=== PATIENT | female | born 1950 | race Caucasian/White ===

== ENCOUNTER 2016-05-20 17:26 | Inpatient (IN) | payer OTHER ==
[~2016-05-20] VITALS: Ht 154.9 cm; Wt 61.7 kg
[2016-05-20] MEDS ORDERED: ONDANSETRON 4 MG INJ IV STA (17:56)
[2016-05-20] MEDS ORDERED: morphine 4 MG/ML VIAL IV STA (17:56)
[2016-05-20] MEDS ORDERED: PIPER-TAZO 3.375 GM IV (PMX) 100 ML IVPB STA (17:56)
[2016-05-20] MEDS ORDERED: VANCOMYCIN 1 GM (PMX) 250 ML IVPB STA (17:56)
[2016-05-20] MEDS ORDERED: SODIUM CHLORIDE 0.9% 1L BAG IV* STA (17:56)
[2016-05-20] MEDS ORDERED: SIME80TA PO (18:09)
[2016-05-20] MEDS ORDERED: PRED5 PO (18:09)
[2016-05-20] MEDS ORDERED: NORT10CA2 PO (18:10)
[2016-05-20] MEDS ORDERED: METF1000 PO (18:11)
[2016-05-20] MEDS ORDERED: LOSA25TA5 PO (18:11)
[2016-05-20] MEDS ORDERED: LEVO88TA3 PO (18:12)
[2016-05-20] MEDS ORDERED: HC20CR25 TOP (18:14)
[2016-05-20] MEDS ORDERED: INSU100I12 SQ (18:15)
[2016-05-20] MEDS ORDERED: FLUT16SP17 NASAL (18:15)
[2016-05-20] MEDS ORDERED: FER325 PO (18:16)
[2016-05-20] MEDS ORDERED: CADE40GE TP (18:17)
[2016-05-20] MEDS ORDERED: IMU50 PO (18:22)
[2016-05-20] MEDS ORDERED: ATOR40TA68 PO (18:23)
[2016-05-20] MEDS ORDERED: ASPI-664 PO (18:26)
[2016-05-20] MEDS ORDERED: AMLO2.5T78 PO (18:28)
[2016-05-20] MEDS ORDERED: BACI28.34 TOP (18:29)
[2016-05-20 18:32] LABS: ADD SCAN DIFF NO
[2016-05-20 18:34] LABS: BASOPHILS % 0.3 % (0.0-2.0); EOSINOPHILS # 0.1 10^3/ul (0.0-0.5); EOSINOPHILS % 0.8 % (0.0-7.0); HEMATOCRIT 39.4 % (37.0-47.0); HEMOGLOBIN 11.8 g/dl (12.0-16.0); LYMPHOCYTES # 2.5 10^3/ul (0.8-2.9); LYMPHOCYTES % 21.4 % (15.0-51.0); MEAN CORPUSCULAR HEMOGLOBIN 22.6 pg (29.0-33.0); MEAN CORPUSCULAR HGB CONC 29.9 g/dl (32.0-37.0); MEAN CORPUSCULAR VOLUME 75.3 fl (82.0-101.0); MEAN PLATELET VOLUME 10.5 fl (7.4-10.4); MONOCYTES % 8.4 % (0.0-11.0); NEUTROPHILS % 68.7 % (39.0-77.0); PLATELET COUNT 261 10^3/UL (140-415); RED BLOOD COUNT 5.23 10^6/ul (4.20-5.40); RED CELL DISTRIBUTION WIDTH 17.5 % (11.5-14.5); WHITE BLOOD COUNT 11.6 10^3/ul (4.8-10.8)
--- NOTE | 2016-05-20 18:37 | ERA ---
ER Documentation Chief Complaint Date/Time DATE: 05/20/16 TIME: 18:32 Chief Complaint DIABETIC FOOT/LEG PAIN X 3 DAYS HPI 66-year-old female with a history of hypertension, diabetes, recurrent leg wounds, and hypergammaglobulinemia on Azathioprine and prednisone daily presenting with severe left lower leg pain. She has noticed some redness and swelling in the past 3 days. Since yesterday she has had associated fevers and chills. She is unable to walk secondary to the pain. Her pain is rated at a 10 out of 10, throbbing, radiating down to her foot. She denies any new numbness or tingling. She recently had an MRI of her leg about 2 weeks ago but she does not know the results. However she did not have symptoms at that time. She endorses nausea, but no vomiting, diarrhea, constipation, chest pain, shortness of breath, or abdominal pain. ROS All systems reviewed and are negative except as per history of present illness. Medications Home Meds Reported Medications Bacitracin* (Bacitracin Zinc Oint*) 28.35 Gm Oint, 2 APPLIC TOP BID, TUB APPLI TO 05/20/16 Amlodipine Besylate* (Amlodipine Besylate*) 2.5 Mg Tablet, 2.5 MG PO BID, #30 TAB 05/20/16 Aspirin* (Aspirin* EC) 81 Mg Tablet.dr, 81 MG PO DAILY, TAB 05/20/16 Atorvastatin* (Atorvastatin*) 40 Mg Tablet, 40 MG PO DAILY, #30 TAB 05/20/16 Azathioprine* (Imuran*) 50 Mg Tab, 50 MG PO DAILY, TAB 05/20/16 Cadexomer Iodine (Iodosorb) 40 Gm Gel..gm., 1 MG TP BID Y for PRN 05/20/16 Ferrous Sulfate* (Ferrous Sulfate*) 325 Mg Tabec, 325 MG PO BID, TAB 05/20/16 Fluticasone Propionate* (Fluticasone Propionate* Nasal) 50 Mcg/[place] - 16 Gm [place].susp, 1 SPRAY NASAL BID, #1 BOTTLE TO EACH NOSTRIL 05/20/16 Insulin Lispro (Humalog Kwikpen U-100) 100 Unit/1 Ml Insuln.pen, 14 UNIT SQ TID 05/20/16 Hydrocortisone* Topical (Hydrocortisone* Topical) 2.5%-20 Gm Cream..g., 1 APPLIC TOP BID, TUB 05/20/16 Levothyroxine Sodium* (Levothyroxine Sodium*) 88 Mcg Tablet, 88 MCG PO BEFORE BREAKFAST, #30 TAB 05/20/16 Losartan Potassium* (Losartan Potassium*) 25 Mg Tablet, 25 MG PO DAILY, TAB 05/20/16 Metformin Hcl* (Metformin Hcl*) 1,000 Mg Tablet, 1000 MG PO WITH BREAKFAST DINNE , #60 TAB 05/20/16 Nortriptyline Hcl* (Nortriptyline Hcl*) 10 Mg Capsule, 10 MG PO HS, CAP 05/20/16 Prednisone* (Prednisone*) 5 Mg Tab, 5 MG PO DAILY, TAB 05/20/16 Simethicone* (Anti-Gas/80*) 80 Mg Tab.chew, 80 MG PO Q6H Y for DISTENSION/GAS/ BLOATING, TAB.CHEW 05/20/16 Allergies Allergies: Coded Allergies: No Known Allergy (Unverified , 05/20/16) PMhx/Soc History of Surgery: No Anesthesia Reaction: No Hx Neurological Disorder: No Hx Respiratory Disorders: No Hx Cardiac Disorders: No Hx Psychiatric Problems: No Hx Miscellaneous Medical Probl: Yes (Hypertension, hypergammaglobulinemia with chronic steroid use, diabetes) Hx Alcohol Use: No Hx Substance Use: No Hx Tobacco Use: No Smoking Status: Never smoker FmHx Family History: No diabetes Physical Exam Vitals Vital Signs Date Time Temp Pulse Resp B/P Pulse Ox O2 Delivery O2 Flow Rate FiO2 05/20/16 18:45 98.7 110 26 145/72 99 Room Air 05/20/16 18:22 Nasal Cannula 05/20/16 17:30 100.2 104 18 171/77 99 Physical Exam Const: Nontoxic, appears to be in significant distress secondary to pain Head: Atraumatic Eyes: Normal Conjunctiva ENT: Normal External Ears, Nose and Mouth. Neck: Full range of motion. No meningismus. Resp: Clear to auscultation bilaterally Cardio: Regular rate and rhythm, no murmurs Abd: Soft, non tender, non distended. Normal bowel sounds Skin: No petechiae or rashes Back: No midline or flank tenderness Ext: No cyanosis. Bilateral lower extremities with papular lesions and some nodules that are skin colored. Left lower extremity with nodule over the left valente with surrounding erythema. No fluctuance. There is induration. Entire lower leg is tender to palpation but compartments are soft. 1+ distal pulses bilaterally. Sensations normal. Neur: Awake and alert and oriented 3, no facial asymmetry, motor intact in all 4 extremities Psych: Normal Mood and Affect Result Diagram: 05/20/160 05/20/160 Results 24 hrs Laboratory Tests Test 05/20/16 18:20 White Blood Count 11.610^3/ul Red Blood Count 5.2310^6/ul Hemoglobin 11.8g/dl Hematocrit 39.4% Mean Corpuscular Volume 75.3fl Mean Corpuscular Hemoglobin 22.6pg Mean Corpuscular Hemoglobin Concent 29.9g/dl Red Cell Distribution Width 17.5% Platelet Count 92608^3/UL Mean Platelet Volume 10.5fl Neutrophils % 68.7% Lymphocytes % 21.4% Monocytes % 8.4% Eosinophils % 0.8% Basophils % 0.3% Nucleated Red Blood Cells % 0.0/100WBC Neutrophils # 8.010^3/ul Lymphocytes # 2.510^3/ul Monocytes # 1.010^3/ul Eosinophils # 0.110^3/ul Basophils # 0.010^3/ul Nucleated Red Blood Cells # 0.010^3/ul Prothrombin Time 14.3Sec Prothrombin Time Ratio 1.1 INR International Normalized Ratio 1.11 Activated Partial Thromboplast Time 32.6Sec Sodium Level 133mmol/L Potassium Level 4.7mmol/L Chloride Level 98mmol/L Carbon Dioxide Level 24mmol/L Anion Gap 16 Blood Urea Nitrogen 13mg/dl Creatinine 0.66mg/dl Glucose Level 406mg/dl Lactic Acid Level 3.3mmol/L Calcium Level 9.0mg/dl Total Bilirubin 0.3mg/dl Direct Bilirubin 0.00mg/dl Indirect Bilirubin 0.3mg/dl Aspartate Amino Transf (AST/SGOT) 21IU/L Alanine Aminotransferase (ALT/SGPT) 28IU/L Alkaline Phosphatase 122IU/L Troponin I < 0.012ng/ml Total Protein 8.6g/dl Albumin 3.8g/dl Globulin 4.80g/dl Albumin/Globulin Ratio 0.79 Current Medications Medications (Trade) Dose Ordered Sig/Jad Route PRN Reason Start Time Stop Time Status Last Admin Dose Admin Sodium Chloride 2170 ml 2,170 ml BOLUS OVER 2 HOURS STAT IV* 05/20/16 17:56 05/20/16 18:00 DC 05/20/16 18:18 Vancomycin HCl 250 ml @ 125 mls/hr ONCE STAT IVPB 05/20/16 17:56 05/20/16 19:55 DC 05/20/16 18:41 Piperacillin Sod/ Tazobactam Sod (Zosyn 3.375gm/ 100 ml (Pmx)) 100 ml @ 100 mls/hr ONCE STAT IVPB 05/20/16 17:56 05/20/16 18:55 DC 05/20/16 18:41 Morphine Sulfate (morphine) 4 mg ONCE STAT IV 05/20/16 17:56 05/20/16 18:00 DC 05/20/16 18:18 Ondansetron HCl (Zofran Inj) 4 mg ONCE STAT IV 05/20/16 17:56 05/20/16 18:00 DC 05/20/16 18:18 Hydromorphone HCl (Dilaudid) 1 mg ONCE STAT IV 05/20/16 18:55 05/20/16 18:56 DC 05/20/16 19:38 Procedures/MDM EKG: Rate/Rhythm: Normal Sinus Rhythm QRS, ST, T-waves: Right atrial enlargement, no changes consistent w/ acute ischemia Impression: No evidence of ischemia or arrhythmia Chest x-ray: Cardiomegaly and very mild pulmonary vascular ingestion. X-ray of left tib-fib: 1. No evidence of acute fracture or dislocation. 2. Indeterminate areas of calcification and periosteal reaction are seen involving the anterior tibial surface, of uncertain etiology, possibly sequelae of chronic inflammatory process. Patient is presenting with a cellulitis of the left lower extremity with uncontrolled pain. I have a low suspicion for compartment syndrome. There is no evidence of necrotizing fasciitis. Vancomycin and Zosyn were started. Sepsis workup was started. Patient's infectious symptoms have not stabilized and the patient is at risk of rapid decompensation. The patient will be admitted for careful hydration, antibiotic therapy, and infectious source control. Severe Sepsis Assessment: Infectious Source: Cellulitis End organ damage indicated by: [Lactate > 2.0 mmol/L Severe Sepsis Managment: Blood Cultures X 2 before broad spectrum antibiotics initiated within 3 hours of recognition. 30 ml/kg NS bolus Completed Initial Lactate: 3.3 Repeat Lactate 2.9 Critical Care: Time: 35 minutes Treatments/Evaluations: Emergent fluid management, while maintaining close respiratory support. Immediate broad spectrum antibiotic therapy. Simultaneous assessment for possible sources in order to direct therapy. Consideration for invasive and chemical support to prevent respiratory or cardiac collapse. Septic Shock Assessment (1 hour post 30 ml/kg fluid bolus): Hypotension (SBP < 90 or 40 mmHg drop, MAP < 65): No Lactic acid > 4.0 no Accepting Care Team: Current data and ongoing care discussed. Time: Time of admission Primary Provider: Vance Consulting: none Outstanding Data: none Departure Diagnosis: Primary Impression: Cellulitis of left lower extremity Additional Impressions: Severe sepsis Uncontrolled diabetes mellitus Qualified Code: E11.8 - Uncontrolled type 2 diabetes mellitus with complication, with long-term current use of insulin ZAHRA CATALAN MD May 20, 2016 18:37
[2016-05-20 18:46] LABS: ALBUMIN 3.8 g/dl (3.3-4.9); CHLORIDE 98 mmol/L (97-110); INR 1.11; PROTIME 14.3 Sec (12.2-14.2); PT RATIO 1.1
[2016-05-20 18:47] LABS: PARTIAL THROMBOPLASTIN TIME 32.6 Sec (25.0-35.0); POTASSIUM 4.7 mmol/L (3.5-5.1); SODIUM 133 mmol/L (135-144)
[2016-05-20 18:49] LABS: ALANINE AMINOTRANSFERASE 28 IU/L (13-69); ALBUMIN/GLOBULIN RATIO 0.79; ALKALINE PHOSPHATASE 122 IU/L (42-121); ANION GAP 16 (8-16); ASPARTATE AMINO TRANSFERASE 21 IU/L (15-46); BILIRUBIN,INDIRECT 0.3 mg/dl (0-1.1); BILIRUBIN,TOTAL 0.3 mg/dl (0.2-1.3); BLOOD UREA NITROGEN 13 mg/dl (7-20); CARBON DIOXIDE 24 mmol/L (21-31); CREATININE 0.66 mg/dl (0.44-1.00); TOTAL PROTEIN 8.6 g/dl (6.1-8.1)
[2016-05-20 18:52] LABS: GLUCOSE 406 mg/dl (70-220)
[2016-05-20] MEDS ORDERED: HYDROmorphONE 1 MG/ML SYG IV STA (18:55)
[2016-05-20 19:06] LABS: TROPONIN-I < 0.012 ng/ml (0.00-0.12)
--- NOTE | 2016-05-20 19:15 | RADRPT ---
PROCEDURE: XR Chest. CLINICAL INDICATION: Possible sepsis. TECHNIQUE: Single frontal view of the chest was obtained COMPARISON: None FINDINGS: Cardiomegaly. Atherosclerotic calcifications in the thoracic aorta. Very mild pulmonary vascular in gestion and lungs otherwise clear. There is no pleural effusion or pneumothorax. IMPRESSION: Cardiomegaly and very mild pulmonary vascular ingestion. RPTAT: [facility]U Physician Efe Date Time Electronically viewed and signed by Barry Wu Physician on 05/20/2016 19:14 RS/
--- NOTE | 2016-05-20 19:21 | RADRPT ---
PROCEDURE: XR Tibia and Fibula. CLINICAL INDICATION: Sepsis, cellulitis TECHNIQUE: Two views of the left tibia and fibula are available for review. COMPARISON: None available FINDINGS: Indeterminate areas of calcification and periosteal reaction are seen predominately involving the an terior tibial surface, of uncertain etiology, possibly sequelae of chronic inflammatory process. No acute fracture or dislocation is identified. No focal osseous lesion is seen. There is no radiode nse foreign body. No subcutaneous gas is identified. IMPRESSION: 1. No evidence of acute fracture or dislocation. 2. Indeterminate areas of calcification and periosteal reaction are seen involving the anterior tib ial surface, of uncertain etiology, possibly sequelae of chronic inflammatory process. RPTAT: QQ .Vasile Benton MD, MD Date Time Electronically viewed and signed by .Vasile Benton MD, on 05/20/2016 19:21 .R/
[2016-05-20] MEDS ORDERED: ACETAMINOPHEN 325 MG TAB PO PRN (20:00)
[2016-05-20] MEDS ORDERED: ONDANSETRON 4 MG INJ IV PRN ×2 (20:00→22:00)
[2016-05-20 20:43] VITALS: TEMP 102.1
[2016-05-20 21:18] VITALS: Ht 154.9 cm; Wt 61.7 kg
[2016-05-20 21:31] VITALS: BP 139/61; RESP 21
[2016-05-20] MEDS ORDERED: VANCOMYCIN IV PER PHARMACY XX SCH (22:00)
[2016-05-20] MEDS ORDERED: GLUCOSE GEL 15 GRAM TUBE PO PRN ×2 (22:30)
[2016-05-20] MEDS ORDERED: GLUCAGON 1 MG INJ IM PRN (22:30)
[2016-05-20] MEDS ORDERED: GLUCOSE GEL 15 GRAM TUBE BUCCAL PRN (22:30)
[2016-05-20] MEDS ORDERED: DEXTROSE 50% 50 ML SYRINGE IV PRN ×2 (22:30)
[2016-05-20] MEDS: INSULIN GLARGINE [LANtus] 3 ML PEN SC SCH (22:38)
[2016-05-21] MEDS: morphine 2 MG INJ IV PRN ×5 (00:55→21:13)
[2016-05-21] MEDS ORDERED: ACCU-CHEK XX SCH (02:00)
[2016-05-21] MEDS: ACCU-CHEK XX SCH (02:45)
--- NOTE | 2016-05-21 07:38 | HP ---
DATE OF ADMISSION: 05/20/2016 CHIEF COMPLAINT: Left lower leg redness and pain. HISTORY OF PRESENT ILLNESS: The patient is a 66-year-old female with a history of diabetes, hyperte nsion, dyslipidemia, hypergammaglobulinemia who presented to the emergency department with left lowe r extremity pain and redness. She stated she has had recurrent left leg wound which, over the past 3 days, has gotten worse. She reported some fever and also difficulty to walk because of the leg pa in. She denied any chest pain, shortness of breath, nausea, vomiting, abdominal pain, or urinary sy mptoms. This is her first visit to this hospital. She did say she had imaging of her leg, either a CAT scan or an MRI, about 2 weeks ago, but she does not know the results of it. REVIEW OF SYSTEMS: A 12-point review of the brain was performed, negative except as in the HPI. PAST MEDICAL HISTORY: As per HPI. SOCIAL HISTORY: Denies history of tobacco, alcohol, or illicit drug use. ALLERGIES: NO KNOWN DRUG ALLERGIES. HOME MEDICATIONS: Include 1. Ferrous sulfate. 2. Lipitor. 3. Losartan. 4. Aspirin. 5. Nortriptyline 6. Fluticasone. 7. ____. 8. Insulin. 9. Metformin. 10. Synthroid. 11. Prednisone. 12. Hydrocortisone cream. 13. Imuran. PHYSICAL EXAMINATION: VITAL SIGNS: Blood pressure 139/61, heart rate 69, respiratory rate 21, temperature 102.5, oxygen s aturation 95%. GENERAL: The patient seems somehow uncomfortable because of leg pain. HEENT: No obvious head deformity. Pupils are reactive to light. Extraocular muscles intact. CARDIOVASCULAR: Tachycardic, regular rhythm. LUNGS: Clear. ABDOMEN: Soft, nontender. Positive bowel sounds. EXTREMITIES: There is erythema and a nodule over her left lower extremity. She does have some lesi ons which are maculopapular on her bilateral lower extremities. There is tenderness on her left low er extremity. LABORATORY DATA: Pertinent positives as mentioned in the HPI. IMAGING: Left lower extremity x-ray shows indeterminate areas of calcification and periosteal react ion involving the anterior tibial surface, possibly sequelae of chronic inflammatory process. Other daniels, no evidence of acute fracture or dislocation. Chest x-ray shows cardiomegaly and very mild pu lmonary vascular congestion. IMPRESSION: 1. Sepsis as evidenced by fever, tachycardia, secondary to left lower extremity cellulitis. 2. Recurrent left lower extremity cellulitis/wound. 3. Diabetes with hyperglycemia. 4. Hypertension. 5. 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 Hypothyroidism. 7. Dyslipidemia. PLAN: She will be placed on broad spectrum antibiotics. We will follow up on the culture results i ncluding blood, urine, and if possible wound. We will provide pain medication as needed. She will be placed on insulin with adjustment as needed for better glycemic control. We will continue her ho me medications with adjustment as needed. We will check A1c, fasting lipid, and TSH in the morning. We will place an ID consult. Further workup and management per clinical course. Dictated By: JERICA ACUNA/TORREY Conf#: [id number] DID#: [id number]
[2016-05-21 07:40] VITALS: BP 137/61; RESP 18
[2016-05-21 07:47] LABS: ADD SCAN DIFF NO
[2016-05-21 07:53] LABS: BASOPHILS % 0.3 % (0.0-2.0); EOSINOPHILS # 0.1 10^3/ul (0.0-0.5); EOSINOPHILS % 0.9 % (0.0-7.0); HEMATOCRIT 34.4 % (37.0-47.0); HEMOGLOBIN 10.6 g/dl (12.0-16.0); LYMPHOCYTES # 2.3 10^3/ul (0.8-2.9); MEAN CORPUSCULAR HGB CONC 30.8 g/dl (32.0-37.0); MEAN CORPUSCULAR VOLUME 74.6 fl (82.0-101.0); MEAN PLATELET VOLUME 10.7 fl (7.4-10.4); MONOCYTE # 1.1 10^3/ul (0.3-0.9); MONOCYTES % 9.1 % (0.0-11.0); NEUTROPHIL # 8.1 10^3/ul (1.6-7.5); NEUTROPHILS % 69.2 % (39.0-77.0); PLATELET COUNT 226 10^3/UL (140-415); RED BLOOD COUNT 4.61 10^6/ul (4.20-5.40); RED CELL DISTRIBUTION WIDTH 17.7 % (11.5-14.5); WHITE BLOOD COUNT 11.7 10^3/ul (4.8-10.8)
[2016-05-21 08:23] LABS: ALBUMIN 3.2 g/dl (3.3-4.9); POTASSIUM 3.9 mmol/L (3.5-5.1)
[2016-05-21 08:25] LABS: CREATININE 0.65 mg/dl (0.44-1.00)
[2016-05-21 08:26] LABS: ALBUMIN/GLOBULIN RATIO 0.72; BILIRUBIN,INDIRECT 0.3 mg/dl (0-1.1); BILIRUBIN,TOTAL 0.3 mg/dl (0.2-1.3); CALCIUM 8.1 mg/dl (8.4-10.2); TOTAL PROTEIN 7.6 g/dl (6.1-8.1)
[2016-05-21 08:27] LABS: CHOL/HDL RATIO 4.4 RATIO
[2016-05-21] MEDS: INSULIN ASPART [NOVOLOG] 3 ML PEN SC SCH ×7 (08:31→21:00)
[2016-05-21] MEDS: HYDROCORTISONE 2.5% 20 GM CR TOP SCH ×2 (08:32→21:23)
[2016-05-21] MEDS: LEVOTHYROXINE 88 MCG TAB PO SCH (08:32)
[2016-05-21] MEDS: ASPIRIN (EC) 81 MG TAB PO SCH (08:32)
[2016-05-21] MEDS: AZATHIOPRINE 50 MG TAB PO SCH (08:32)
[2016-05-21] MEDS: ATORVASTATIN 40 MG TAB PO SCH (08:33)
[2016-05-21] MEDS: FLUTICASONE 0.05% 16 GM NAS SPRAY NASAL SCH ×2 (08:33→21:18)
[2016-05-21] MEDS: FERROUS SULFATE (EC) 325 MG TAB PO SCH ×2 (08:33→21:19)
[2016-05-21] MEDS: CEFEPIME 1GM/50 ML (PMX) 50 ML IVPB SCH ×2 (08:39→21:14)
[2016-05-21] MEDS: BACITRACIN 0.5%/ZINC 28.35 GM OINT TOP SCH ×2 (09:00→21:18)
[2016-05-21] MEDS ORDERED: LOSARTAN 25 MG TAB PO SCH (09:00)
[2016-05-21] MEDS ORDERED: AMLODIPINE 2.5 MG TAB PO SCH (09:00)
[2016-05-21] MEDS ORDERED: VANCOMYCIN 1.5 GM in SOD CHLORIDE 0.9% 250 ML IVPB SCH (11:00)
[2016-05-21 11:42] LABS: IRON 17 ug/dl (35-150)
[2016-05-21] MEDS: VANCOMYCIN 750 MG in SOD CHLORIDE 0.9% 150 ML IVPB SCH ×2 (11:43→22:30)
--- NOTE | 2016-05-21 11:46 | PN ---
Date/Time of Note Date/Time of Note DATE: 05/21/16 TIME: 11:40 Assessment/Plan VTE Prophylaxis VTE Prophylaxis Intervention: other Lines/Catheters IV [facility]from [facility] Saline Lock Assessment/Plan Problems: (1) Hypothyroidism (acquired) Status: Chronic Comment: Patient is on treatment. This will be continued I will check her TSH. Adjust as needed (2) Hypergammaglobulinemia, unspecified Status: Chronic Comment: We are suffering from a deficit in information here. The patient's on immunosuppression using both Imuran and prednisone. She is now fully septic. She will be on broad-spectrum antibiotics aggressively. She does not remember the names of her doctors who are managing this at this moment. (3) Uncontrolled diabetes mellitus Status: Acute Comment: Her sugars have not been well controlled. I will have her on some of the medication she was on before we need to be careful given the underlying sepsis that she is presented to our hospital with we will get her under control as rapidly as we can Qualifiers: Diabetes mellitus type: type 2 Diabetes mellitus complication status: with unspecified complications Diabetes mellitus roasterman insulin use: with chcf use Qualified Code: E11.8 - Uncontrolled type 2 diabetes mellitus with complication, with long-term current use of insulin (4) Severe sepsis Status: Acute Comment: Fortunately while she has symptoms consistent with this and signs and laboratory findings she does not have an elevated lactate. I will recheck her lactate in the morning the meantime though she is on appropriate antibiotic therapy given the blood cultures. My larger concern is that we do not actually have the formal location of this. While is probably coming from of the skin wounds on the legs we may end up needing to do more enhanced imaging with MRI scan of both lower extremities make sure there is not a deeper infection (5) Cellulitis of left lower extremity Status: Acute Comment: As above may need to do MRI scan of both lower extremities to verify there is no deeper infection (6) Positive blood culture Status: Acute Comment: On broad-spectrum antibiotic (7) Essential hypertension Status: Chronic Comment: Her regimen should use less amlodipine and more losartan will make adjustments (8) Hyperlipidemia Status: Chronic Comment: She will remain on statin therapy Subjective 24 Hr Interval Summary Free Text/Dictation Charming Portuguese-speaking woman lying in bed in obvious pain from her legs. She reports that this is minimally better versus when it started 4 days ago. Constitutional: chills Respiratory: cough Cardiovascular: no complaints Gastrointestinal: no complaints Genitourinary: no complaints Musculoskeletal: other (Significant leg pain) Skin: skin lesions (Skin lesions bilateral lower extremities) Exam/Review of Systems Vital Signs Vitals Vital Signs Date Time Temp Pulse Resp B/P Pulse Ox O2 Delivery O2 Flow Rate FiO2 05/21/16 07:40 100.0 104 18 137/61 95 05/20/16 20:43 Nasal Cannula 3.0 Intake and Output 05/20/16 05/20/16 05/21/16 15:00 23:00 07:00 Intake Total 750 ml Balance 750 ml Exam Constitutional: alert, distress (Pain especially lower extremities), oriented Neck: non-tender, supple Respiratory: clear to auscultation, normal air movement Cardiovascular: nl pulses, regular rate and rhythm Gastrointestinal: nl liver, spleen, non-tender, soft Extremities: other (Multiple ulcers on lower extremities with some cellulitis) Results Result Diagram: 05/21/16 0738 05/21/16 0738 Results 24 hrs Laboratory Tests Test 05/20/16 18:20 05/20/16 19:58 05/20/16 21:52 05/20/16 22:50 White Blood Count 11.6 H Red Blood Count 5.23 Hemoglobin 11.8 L Hematocrit 39.4 Mean Corpuscular Volume 75.3 L Mean Corpuscular Hemoglobin 22.6 L Mean Corpuscular Hemoglobin Concent 29.9 L Red Cell Distribution Width 17.5 H Platelet Count 261 Mean Platelet Volume 10.5 H Neutrophils % 68.7 Lymphocytes % 21.4 Monocytes % 8.4 Eosinophils % 0.8 Basophils % 0.3 Nucleated Red Blood Cells % 0.0 Neutrophils # 8.0 H Lymphocytes # 2.5 Monocytes # 1.0 H Eosinophils # 0.1 Basophils # 0.0 Nucleated Red Blood Cells # 0.0 Prothrombin Time 14.3 H Prothrombin Time Ratio 1.1 INR International Normalized Ratio 1.11 Activated Partial Thromboplast Time 32.6 Sodium Level 133 L Potassium Level 4.7 Chloride Level 98 Carbon Dioxide Level 24 Anion Gap 16 Blood Urea Nitrogen 13 Creatinine 0.66 Glucose Level 406 *H Lactic Acid Level 3.3 H 2.9 H 1.7 Calcium Level 9.0 Total Bilirubin 0.3 Direct Bilirubin 0.00 Indirect Bilirubin 0.3 Aspartate Amino Transf (AST/SGOT) 21 Alanine Aminotransferase (ALT/SGPT) 28 Alkaline Phosphatase 122 H Troponin I < 0.012 Total Protein 8.6 H Albumin 3.8 Globulin 4.80 H Albumin/Globulin Ratio 0.79 Bedside Glucose 201 Test 05/21/16 02:45 05/21/16 07:38 05/21/16 07:54 Bedside Glucose 262 H 187 White Blood Count 11.7 H Red Blood Count 4.61 Hemoglobin 10.6 L Hematocrit 34.4 L Mean Corpuscular Volume 74.6 L Mean Corpuscular Hemoglobin 23.0 L Mean Corpuscular Hemoglobin Concent 30.8 L Red Cell Distribution Width 17.7 H Platelet Count 226 Mean Platelet Volume 10.7 H Neutrophils % 69.2 Lymphocytes % 20.0 Monocytes % 9.1 Eosinophils % 0.9 Basophils % 0.3 Nucleated Red Blood Cells % 0.0 Neutrophils # 8.1 H Lymphocytes # 2.3 Monocytes # 1.1 H Eosinophils # 0.1 Basophils # 0.0 Nucleated Red Blood Cells # 0.0 Sodium Level 137 Potassium Level 3.9 Chloride Level 103 Carbon Dioxide Level 24 Anion Gap 14 Blood Urea Nitrogen 10 Creatinine 0.65 Glucose Level 207 # Hemoglobin A1c 10.4 H Calcium Level 8.1 L Total Bilirubin 0.3 Direct Bilirubin 0.00 Indirect Bilirubin 0.3 Aspartate Amino Transf (AST/SGOT) 22 Alanine Aminotransferase (ALT/SGPT) 21 Alkaline Phosphatase 83 Total Protein 7.6 # Albumin 3.2 L Globulin 4.40 H Albumin/Globulin Ratio 0.72 Triglycerides Level 120 Cholesterol Level 111 LDL Cholesterol, Calculated 62 HDL Cholesterol 25 L Cholesterol/HDL Ratio 4.4 Medications Medications Current Medications Cefepime HCl (Maxipime 1gm/50 ml (Pmx)) 50 ml @ 100 mls/hr Q12 IVPB Last administered on 05/21/16 08:39; Admin Dose 100 MLS/HR; Start 05/21/16 at 09:00 Morphine Sulfate (morphine) 2 mg Q4H PRN IV pain Last administered on 05/21/16 07:27; Admin Dose 2 MG; Start 05/20/16 at 22:00 Acetaminophen (Tylenol Tab) 650 mg Q4H PRN PO PAIN AND OR ELEVATED TEMP; Start 05/20/16 at 22:00 Ondansetron HCl (Zofran Inj) 4 mg Q6H PRN IV NAUSEA AND/OR VOMITING; Start 05/20 at 22:00 Insulin Glargine (Lantus) 20 unit DAILY@20 SC Last administered on 05/20/16 22: 38; Admin Dose 20 UNIT; Start 05/21/16 at 20:00 Diagnostic Test (Pha) (Accu-Chek) 1 ea 02 XX Last administered on 05/21/16 02: 45; Admin Dose 1 EA; Start 05/21/16 at 02:00 Miscellaneous Information 1 ea NOTE XX ; Start 05/20/16 at 22:30 Glucose (Glutose) 15 gm Q15M PRN PO DECREASED GLUCOSE; Start 05/20/16 at 22:30 Glucose (Glutose) 22.5 gm Q15M PRN PO DECREASED GLUCOSE; Start 05/20/16 at 22:30 Dextrose (D50w Syringe) 25 ml Q15M PRN IV DECREASED GLUCOSE; Start 05/20/16 at 22:30 Dextrose (D50w Syringe) 50 ml Q15M PRN IV DECREASED GLUCOSE; Start 05/20/16 at 22:30 Glucagon (Glucagen) 1 mg Q15M PRN IM DECREASED GLUCOSE; Start 05/20/16 at 22:30 Glucose (Glutose) 15 gm Q15M PRN BUCCAL DECREASED GLUCOSE; Start 05/20/16 at 22: 30 Amlodipine Besylate (Norvasc) 2.5 mg BID PO Last administered on 05/21/16 08:38 ; Admin Dose 2.5 MG; Start 05/21/16 at 09:00 Aspirin (Halfprin) 81 mg DAILY PO Last administered on 05/21/16 08:32; Admin Dose 81 MG; Start 05/21/16 at 09:00 Atorvastatin Calcium (Lipitor) 40 mg DAILY PO Last administered on 05/21/16 08: 33; Admin Dose 40 MG; Start 05/21/16 at 09:00 Azathioprine (Imuran) 50 mg DAILY PO Last administered on 05/21/16 08:32; Admin Dose 50 MG; Start 05/21/16 at 09:00 Bacitracin (Bacitracin 0.5%/ Zinc Oint) 2 applic BID TOP ; Start 05/21/16 at 09: 00 Ferrous Sulfate (Ferrous Sulfate (Ec)) 325 mg BID PO Last administered on 08:33; Admin Dose 325 MG; Start 05/21/16 at 09:00 Fluticasone Propionate (Flonase 0.05% Nasal) 1 spray BID NASAL Last administered on 05/21/16 08:33; Admin Dose 1 SPRAY; Start 05/21/16 at 09:00 Hydrocortisone (Hydrocortisone 2.5% Cr) 1 applic BID TOP Last administered on 08:32; Admin Dose 1 APPLIC; Start 05/21/16 at 09:00 Losartan Potassium (Cozaar) 25 mg DAILY PO Last administered on 05/21/16 08:33 ; Admin Dose 25 MG; Start 05/21/16 at 09:00 Nortriptyline HCl 10 mg 10 mg HS PO ; Start 05/21/16 at 21:00 Vancomycin HCl/ Sodium Chloride (Vancocin/NS) 150 ml @ 75 mls/hr Q12H IVPB ; Start 05/21/16 at 11:00 NURIA CABRERA MD May 21, 2016 11:46
[2016-05-21 11:52] LABS: TOTAL IRON BINDING CAPACITY 401 ug/dl (241-421)
[2016-05-21] MEDS: ACETAMINOPHEN 325 MG TAB PO PRN (12:00)
[2016-05-21] MEDS: metFORMIN 500 MG TAB PO SCH ×2 (12:01→17:22)
[2016-05-21 12:18] LABS: FERRITIN 18.4 ng/ml (11.1-264.0)
[2016-05-21 12:21] LABS: ADD UMIC YES; URINE BILIRUBIN (Dip) NEGATIVE (NEGATIVE); URINE BLOOD (Dip) NEGATIVE (NEGATIVE); URINE COLOR LT. YELLOW (YELLOW); URINE KETONES (Dip) NEGATIVE (NEGATIVE); URINE LEUKOCYTE ESTERASE (Dip) TRACE (NEGATIVE); URINE NITRITE (Dip) NEGATIVE (NEGATIVE); URINE TOTAL PROTEIN (Dip) 1+ (NEGATIVE); URINE UROBILINOGEN (Dip) 0.2 E.U./dL (0.1-1.0)
[2016-05-21 12:31] LABS: BACTERIA,URINE FEW
--- NOTE | 2016-05-21 16:11 | RADRPT ---
PROCEDURE: MRI of the left lower extremity CLINICAL INDICATION: Left lower extremity wound, swelling, cellulitis mid anterior side of tibia a nd fibula TECHNIQUE: Multiplanar multisequence images of the left lower extremity without IV contrast utiliz ing multiple pulse sequences. Images were interpreted at a independent PACS workstation. COMPARISON: Radiographs of the left lower extremity May 20, 2016 FINDINGS: There is anterior subcutaneous soft tissue swelling and skin irregularity over the tibial shaft, mos t prominent proximally (axial 13). There are associated dystrophic calcifications, as seen on the p revious radiographs. There is no drainable fluid collection. There is no acute fracture or osteomy elitis. There is nonspecific edema within the tibialis anterior muscle (axial 10), query myositis. There is no evidence of tendon tear. There is no muscle atrophy. Limited assessment of the right l ower extremity on large field of view images is grossly unremarkable. IMPRESSION: 1. Anterior soft tissue swelling and multifocal dystrophic calcifications over the left tibia as ab ove, most prominent proximally. The soft tissue swelling may represent cellulitis and the calcifica tions are nonspecific but could be related to previous trauma or inflammatory process. 2. Nonspecific edema within the proximal tibialis anterior muscle belly, query myositis. 3. No evidence of acute fracture or osteomyelitis. 4. No evidence of drainable fluid collection. RPTAT: UU .Jw Smith MD, Date Time Electronically viewed and signed by .Jw Smith MD, on 05/21/2016 16:11 .K/
[2016-05-21] MEDS: HYDROCODONE/APAP (10/325) TAB PO PRN (17:22)
[2016-05-21 19:47] VITALS: BP 121/60; RESP 16
[2016-05-21] MEDS: INSULIN GLARGINE [LANtus] 3 ML PEN SC SCH (21:11)
[2016-05-21] MEDS: NORTRIPTYLINE 10 MG CAP PO SCH (21:19)
[2016-05-21] MEDS: LOSARTAN 25 MG TAB PO SCH (21:21)
[2016-05-22] MEDS: ACCU-CHEK XX SCH (02:00)
[2016-05-22] MEDS: morphine 2 MG INJ IV PRN ×3 (02:24→16:32)
[2016-05-22 05:25] LABS: ADD SCAN DIFF NO
[2016-05-22 05:30] LABS: BASOPHILS % 0.3 % (0.0-2.0); EOSINOPHILS # 0.1 10^3/ul (0.0-0.5); EOSINOPHILS % 1.2 % (0.0-7.0); HEMATOCRIT 33.2 % (37.0-47.0); LYMPHOCYTES # 2.7 10^3/ul (0.8-2.9); LYMPHOCYTES % 24.4 % (15.0-51.0); MEAN CORPUSCULAR HEMOGLOBIN 22.7 pg (29.0-33.0); MEAN CORPUSCULAR HGB CONC 30.1 g/dl (32.0-37.0); MEAN CORPUSCULAR VOLUME 75.3 fl (82.0-101.0); MEAN PLATELET VOLUME 11.4 fl (7.4-10.4); MONOCYTE # 1.1 10^3/ul (0.3-0.9); MONOCYTES % 9.8 % (0.0-11.0); NEUTROPHILS % 63.8 % (39.0-77.0); PLATELET COUNT 204 10^3/UL (140-415); RED BLOOD COUNT 4.41 10^6/ul (4.20-5.40); RED CELL DISTRIBUTION WIDTH 17.8 % (11.5-14.5); WHITE BLOOD COUNT 10.9 10^3/ul (4.8-10.8)
[2016-05-22 05:40] LABS: ALBUMIN 2.9 g/dl (3.3-4.9)
[2016-05-22 05:41] LABS: POTASSIUM 3.8 mmol/L (3.5-5.1)
[2016-05-22 05:43] LABS: ALBUMIN/GLOBULIN RATIO 0.64; BILIRUBIN,INDIRECT 0.3 mg/dl (0-1.1); BILIRUBIN,TOTAL 0.3 mg/dl (0.2-1.3); CREATININE 0.64 mg/dl (0.44-1.00); TOTAL PROTEIN 7.4 g/dl (6.1-8.1)
[2016-05-22 05:44] LABS: CALCIUM 7.9 mg/dl (8.4-10.2)
[2016-05-22] MEDS: LEVOTHYROXINE 88 MCG TAB PO SCH (07:01)
[2016-05-22] MEDS: INSULIN ASPART [NOVOLOG] 3 ML PEN SC SCH ×7 (07:52→20:46)
[2016-05-22 07:56] VITALS: BP 130/58; RESP 18
[2016-05-22] MEDS: CEFEPIME 1GM/50 ML (PMX) 50 ML IVPB SCH ×2 (08:17→21:01)
[2016-05-22] MEDS: metFORMIN 500 MG TAB PO SCH ×2 (08:17→17:33)
[2016-05-22] MEDS: ASPIRIN (EC) 81 MG TAB PO SCH (08:17)
[2016-05-22] MEDS: FERROUS SULFATE (EC) 325 MG TAB PO SCH ×2 (08:18→20:46)
[2016-05-22] MEDS: FLUTICASONE 0.05% 16 GM NAS SPRAY NASAL SCH ×2 (08:18→20:47)
[2016-05-22] MEDS: ATORVASTATIN 40 MG TAB PO SCH (08:18)
[2016-05-22] MEDS: AZATHIOPRINE 50 MG TAB PO SCH (08:18)
[2016-05-22] MEDS: AMLODIPINE 2.5 MG TAB PO SCH (08:19)
[2016-05-22] MEDS: LOSARTAN 25 MG TAB PO SCH ×2 (08:19→20:47)
[2016-05-22] MEDS: HYDROCORTISONE 2.5% 20 GM CR TOP SCH ×2 (08:20→20:49)
[2016-05-22] MEDS: BACITRACIN 0.5%/ZINC 28.35 GM OINT TOP SCH ×2 (08:20→21:00)
[2016-05-22] MEDS: VANCOMYCIN 750 MG in SOD CHLORIDE 0.9% 150 ML IVPB SCH (11:44)
[2016-05-22] MEDS: HYDROCODONE/APAP (10/325) TAB PO PRN ×2 (11:50→19:39)
[2016-05-22] MEDS ORDERED: POLYETHYLENE GLYCOL 17 GM PACKET PO PRN (15:00)
--- NOTE | 2016-05-22 15:17 | PN ---
Date/Time of Note Date/Time of Note DATE: 05/22/16 TIME: 15:07 Assessment/Plan VTE Prophylaxis VTE Prophylaxis Intervention: LMWH Lines/Catheters IV [facility] Saline Lock Urinary Cath still in place: No Assessment/Plan Chief Complaint/Hosp Course IMPRESSION: 1. Sepsis as evidenced by fever, tachycardia, secondary to left lower extremity cellulitis. Continue vancomycin and cefepime, infectious disease doctor has been consulted 2. Recurrent left lower extremity cellulitis/wound. As above 3. Diabetes with hyperglycemia. Hemoglobin A1c of 10.9, better controlled at this time continue Lantus insulin sliding scale low-carb diet 4. Hypertension. Well-controlled on medical management 5. 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 Hypothyroidism. Continue levothyroxine 7. Dyslipidemia. Continue statin We will continue monitor patient closely for recommendation management treatment as clinical course Problems: Subjective 24 Hr Interval Summary Free Text/Dictation Patient continues to complain of having left lower extremity pain Has not been able to ambulate secondary to pain Tolerating oral intake Exam/Review of Systems Vital Signs Vitals Vital Signs Date Time Temp Pulse Resp B/P Pulse Ox O2 Delivery O2 Flow Rate FiO2 05/22/16 07:56 99.6 109 18 130/58 96 05/20/16 20:43 Nasal Cannula 3.0 Intake and Output 05/21/16 05/21/16 05/22/16 15:00 23:00 07:00 Intake Total 1770 ml 850 ml Output Total 1650 ml Balance 120 ml 850 ml Exam General: The patient is well-developed, Not in acute distress. HEENT: Atraumatic, normocephalic. The pupils are equal and round . Neck: Supple with full range of motion. Chest: Normal expansion of the thorax during inspiration Lungs: Clear to auscultation bilaterally Heart: Normal S1-S2, Regular rhythm and rate. Abdomen: Soft , nontender, nondistended , bowel sounds are present. Extremities: Left lower extremity ulcer at valente area, no edema no cyanosis Neurologic: Normal mental status,The patient is awake, alert and oriented . Results Result Diagram: 05/22/16 0450 05/22/16 0450 Results 24 hrs Laboratory Tests Test 05/21/16 17:21 05/21/16 21:09 05/22/16 04:50 05/22/16 07:50 Bedside Glucose 128 152 110 White Blood Count 10.9 H Red Blood Count 4.41 Hemoglobin 10.0 L Hematocrit 33.2 L Mean Corpuscular Volume 75.3 L Mean Corpuscular Hemoglobin 22.7 L Mean Corpuscular Hemoglobin Concent 30.1 L Red Cell Distribution Width 17.8 H Platelet Count 204 Mean Platelet Volume 11.4 H Neutrophils % 63.8 Lymphocytes % 24.4 Monocytes % 9.8 Eosinophils % 1.2 Basophils % 0.3 Nucleated Red Blood Cells % 0.0 Neutrophils # 7.0 Lymphocytes # 2.7 Monocytes # 1.1 H Eosinophils # 0.1 Basophils # 0.0 Nucleated Red Blood Cells # 0.0 Sodium Level 134 L Potassium Level 3.8 Chloride Level 99 Carbon Dioxide Level 23 Anion Gap 16 Blood Urea Nitrogen 11 Creatinine 0.64 Glucose Level 147 # Lactic Acid Level 1.0 Calcium Level 7.9 L Total Bilirubin 0.3 Direct Bilirubin 0.00 Indirect Bilirubin 0.3 Aspartate Amino Transf (AST/SGOT) 22 Alanine Aminotransferase (ALT/SGPT) 22 Alkaline Phosphatase 73 Total Protein 7.4 Albumin 2.9 L Globulin 4.50 H Albumin/Globulin Ratio 0.64 Test 05/22/16 11:53 Bedside Glucose 185 Medications Medications Current Medications Cefepime HCl (Maxipime 1gm/50 ml (Pmx)) 50 ml @ 100 mls/hr Q12 IVPB Last administered on 05/22/16 08:17; Admin Dose 100 MLS/HR; Start 05/21/16 at 09:00 Morphine Sulfate (morphine) 2 mg Q4H PRN IV pain Last administered on 05/22/16 07:47; Admin Dose 2 MG; Start 05/20/16 at 22:00 Acetaminophen (Tylenol Tab) 650 mg Q4H PRN PO PAIN AND OR ELEVATED TEMP Last administered on 05/21/16 12:00; Admin Dose 650 MG; Start 05/20/16 at 22:00 Ondansetron HCl (Zofran Inj) 4 mg Q6H PRN IV NAUSEA AND/OR VOMITING; Start 05/20 at 22:00 Insulin Glargine (Lantus) 20 unit DAILY@20 SC Last administered on 05/21/16 21: 11; Admin Dose 20 UNIT; Start 05/21/16 at 20:00 Diagnostic Test (Pha) (Accu-Chek) 1 ea 02 XX Last administered on 05/21/16 02: 45; Admin Dose 1 EA; Start 05/21/16 at 02:00 Miscellaneous Information 1 ea NOTE XX ; Start 05/20/16 at 22:30 Glucose (Glutose) 15 gm Q15M PRN PO DECREASED GLUCOSE; Start 05/20/16 at 22:30 Glucose (Glutose) 22.5 gm Q15M PRN PO DECREASED GLUCOSE; Start 05/20/16 at 22:30 Dextrose (D50w Syringe) 25 ml Q15M PRN IV DECREASED GLUCOSE; Start 05/20/16 at 22:30 Dextrose (D50w Syringe) 50 ml Q15M PRN IV DECREASED GLUCOSE; Start 05/20/16 at 22:30 Glucagon (Glucagen) 1 mg Q15M PRN IM DECREASED GLUCOSE; Start 05/20/16 at 22:30 Glucose (Glutose) 15 gm Q15M PRN BUCCAL DECREASED GLUCOSE; Start 05/20/16 at 22: 30 Aspirin (Halfprin) 81 mg DAILY PO Last administered on 05/22/16 08:17; Admin Dose 81 MG; Start 05/21/16 at 09:00 Atorvastatin Calcium (Lipitor) 40 mg DAILY PO Last administered on 05/22/16 08: 18; Admin Dose 40 MG; Start 05/21/16 at 09:00 Azathioprine (Imuran) 50 mg DAILY PO Last administered on 05/22/16 08:18; Admin Dose 50 MG; Start 05/21/16 at 09:00 Bacitracin (Bacitracin 0.5%/ Zinc Oint) 2 applic BID TOP Last administered on 08:20; Admin Dose 2 APPLIC; Start 05/21/16 at 09:00 Ferrous Sulfate (Ferrous Sulfate (Ec)) 325 mg BID PO Last administered on 08:18; Admin Dose 325 MG; Start 05/21/16 at 09:00 Fluticasone Propionate (Flonase 0.05% Nasal) 1 spray BID NASAL Last administered on 05/22/16 08:18; Admin Dose 1 SPRAY; Start 05/21/16 at 09:00 Hydrocortisone (Hydrocortisone 2.5% Cr) 1 applic BID TOP Last administered on 08:20; Admin Dose 1 APPLIC; Start 05/21/16 at 09:00 Nortriptyline HCl 10 mg 10 mg HS PO Last administered on 05/21/16 21:19; Admin Dose 10 MG; Start 05/21/16 at 21:00 Vancomycin HCl/ Sodium Chloride (Vancocin/NS) 150 ml @ 75 mls/hr Q12H IVPB Last administered on 05/22/16 11:44; Admin Dose 75 MLS/HR; Start 05/21/16 at 11: 00 Amlodipine Besylate (Norvasc) 2.5 mg QAM PO Last administered on 05/22/16 08:19 ; Admin Dose 2.5 MG; Start 05/22/16 at 09:00 Losartan Potassium (Cozaar) 25 mg BID PO Last administered on 05/22/16 08:19; Admin Dose 25 MG; Start 05/21/16 at 21:00 Acetaminophen/ Hydrocodone Bitart ([place] (10/325)) 1 tab Q4H PRN PO PAIN Last administered on 05/22/16 11:50; Admin Dose 1 TAB; Start 05/21/16 at 14:00 Miscellaneous Information (*Rx Drug Level Order Reminder*) VANCOMYCIN TROUGH 05/22 AT 2200 ONCE ONCE XX ; Start 05/22/16 at 22:00; Stop 05/22/16 at 22:01 Docusate Sodium (Colace) 100 mg DAILY PO ; Start 05/22/16 at 15:00; Status UNV Polyethylene Glycol (Miralax) 17 gm DAILY PRN PO CONSTIPATION; Start 05/22/16 at 15:00; Status UNV Senna (Senokot) 1 tab QPM PO ; Start 05/22/16 at 21:00; Status UNV MICHAEL CHU MD May 22, 2016 15:17
[2016-05-22] MEDS: DOCUSATE SODIUM 100 MG CAP PO SCH (15:26)
--- NOTE | 2016-05-22 19:46 | CONS ---
DATE OF ADMISSION: 05/20/2016 DATE OF CONSULTATION: 05/22/2016 TYPE OF CONSULTATION: Infectious disease. REASON FOR CONSULTATION: Antibiotic management. HISTORY OF PRESENT ILLNESS: Ariane De Jesus is a pleasant 66-year-old female with a numbe r of problems who comes in with significant cellulitis of the left lower extremity and is being seen for antibiotic management. Past problems include: 1. Adult-onset diabetes mellitus. 2. Hypertension. 3. Dyslipidemia. 4. Hypergammaglobulinemia. Acutely, the patient presented to the emergency room with left lower extremity pain and redness. Sh zion stated she had recurrent left leg wound, which over the past 3 days prior to admission, had gotten worse. She also has lesions on her right anterior tibial area, which are linear and go down the le g. They are pustular, but not fluctuant in formation. She had some fever and difficulty walking be cause of leg pain. She had significant redness as well. She says she had imaging of her leg either a CAT scan or MRI 2 weeks ago, but she does not know the results. PAST MEDICAL HISTORY: Operations as outlined. FAMILY HISTORY: Noncontributory. SOCIAL HISTORY: She does not smoke, drink, or abuse drugs. MEDICATIONS: Include: 1. Synthroid for hypothyroidism. 2. Metformin for diabetes. 3. She is on azathioprine or Imuran for some condition, possibly her hypergammaglobulinemia, but we need more information on this. ALLERGIES: NONE TO PENICILLIN, SULFA OR FOODS. MEDICATIONS: Per chart. HOSPITAL COURSE: The patient was seen by Dr. Downs, who noted hypothyroidism, hypogammaglobulinemia on Imuran and prednisone, Phan septic. The patient started on vancomycin and cefepime. A lower e xtremity MRI was done, which shows no evidence of drainable fluid collection, no osteomyelitis, nons pecific edema within the proximal tibialis and anterior soft tissue swelling and multifocal dystroph ic calcifications over the left tibia as above, most prominent proximally. Soft tissue swelling may represent cellulitis and the calcifications are nonspecific, but could be related to previous traum a or inflammatory process. The patient is growing out group B strep, blood cultures are growing gra m-negative rods and gram-positive cocci and gram-positive rods, so we are not exactly sure what is g rowing, but I think gram-positive rods and probably gram-positive cocci are contaminant. She is twila wing group B strep. We may want to get a 2D echocardiogram on her as well since she has fever, she is tachycardic, and she has multiple medical problems. PHYSICAL EXAMINATION: GENERAL: The patient is a well-developed, well-nourished elderly appearing female who is alert, res ponsive, speaks mostly [place]ian, but has her son in the room to translate and a number of friends as well. VITAL SIGNS: T-max of 102.5 on the 1st, but currently 99.6. SKIN: Without generalized rash. She has, as noted, cellulitis of the left lower extremity and part of the cellulitis right below the knee. She has a drainage area and she has some tissue, which is hypertrophied with scab-like formation. On the right side, she has punctate nodular lesions. HEENT: Within normal limits. NECK: Supple. LYMPH NODES: None palpable. CHEST: Decreased breath sounds at the bases. HEART: Without murmur or gallop. ABDOMEN: Soft, nontender without organosplenomegaly or masses. EXTREMITIES: Left lower extremity is red, somewhat swollen, cellulitic with some drainage from the caudal aspect of the wound. The right lower extremity has some punctate lesions, which could be gloria cifications, but having been present intermittently over the last 7 years. PLAN: We will await the cultures. We may want to biopsy the other lesions. I will dictate my find ings to the hospitalist, to Dr. Chu, Dr. Galloway, and to Dr. Downs. Parenthetically, she needs t o have her leg elevated at a 3-pillow level. Dictated By: SUKHI WELSH MD, JD/TORREY Conf#: [id number] DID#: [id number] CC: NURIA DOWNS MD; MICHAEL CHU MD; JERICA GALLOWAY MD;*[facility]*
[2016-05-22 20:05] VITALS: BP 132/59; RESP 16
[2016-05-22] MEDS: SENNA TAB PO SCH (20:47)
[2016-05-22] MEDS: INSULIN GLARGINE [LANtus] 3 ML PEN SC SCH (20:52)
[2016-05-22] MEDS: NORTRIPTYLINE 10 MG CAP PO SCH (21:01)
[2016-05-22] MEDS: VANCOMYCIN 1 GM in NS 250 ML IVPB SCH (23:07)
[2016-05-22] MEDS ORDERED: VANCOMYCIN 1 GM in NS 250 ML IVPB SCH (23:30)
[2016-05-23] MEDS: ACCU-CHEK XX SCH (02:00)
[2016-05-23] MEDS: morphine 2 MG INJ IV PRN ×2 (02:53→20:56)
[2016-05-23] MEDS: LEVOTHYROXINE 88 MCG TAB PO SCH (06:12)
[2016-05-23 06:22] LABS: ADD SCAN DIFF NO
[2016-05-23 06:35] LABS: BASOPHILS % 0.3 % (0.0-2.0); EOSINOPHILS # 0.1 10^3/ul (0.0-0.5); EOSINOPHILS % 1.5 % (0.0-7.0); HEMOGLOBIN 10.1 g/dl (12.0-16.0); LYMPHOCYTES # 2.1 10^3/ul (0.8-2.9); LYMPHOCYTES % 21.9 % (15.0-51.0); MEAN CORPUSCULAR HEMOGLOBIN 22.9 pg (29.0-33.0); MEAN CORPUSCULAR HGB CONC 30.6 g/dl (32.0-37.0); MEAN CORPUSCULAR VOLUME 74.7 fl (82.0-101.0); MEAN PLATELET VOLUME 10.7 fl (7.4-10.4); MONOCYTES % 10.3 % (0.0-11.0); NEUTROPHIL # 6.3 10^3/ul (1.6-7.5); NEUTROPHILS % 65.5 % (39.0-77.0); PLATELET COUNT 257 10^3/UL (140-415); RED BLOOD COUNT 4.42 10^6/ul (4.20-5.40); RED CELL DISTRIBUTION WIDTH 17.9 % (11.5-14.5); WHITE BLOOD COUNT 9.6 10^3/ul (4.8-10.8)
[2016-05-23 06:41] LABS: POTASSIUM 3.7 mmol/L (3.5-5.1)
[2016-05-23 06:44] LABS: CALCIUM 8.2 mg/dl (8.4-10.2); CREATININE 0.61 mg/dl (0.44-1.00)
[2016-05-23 06:45] LABS: MAGNESIUM 1.6 mg/dl (1.7-2.5)
[2016-05-23] MEDS: INSULIN ASPART [NOVOLOG] 3 ML PEN SC SCH ×7 (07:55→20:44)
[2016-05-23] MEDS: ACETAMINOPHEN 325 MG TAB PO PRN (08:00)
[2016-05-23] MEDS: metFORMIN 500 MG TAB PO SCH ×2 (08:00→17:24)
[2016-05-23 08:03] VITALS: BP 122/58; RESP 21
[2016-05-23] MEDS: CEFEPIME 1GM/50 ML (PMX) 50 ML IVPB SCH (09:28)
[2016-05-23] MEDS: DOCUSATE SODIUM 100 MG CAP PO SCH (09:29)
[2016-05-23] MEDS: ASPIRIN (EC) 81 MG TAB PO SCH (09:29)
[2016-05-23] MEDS: ATORVASTATIN 40 MG TAB PO SCH (09:29)
[2016-05-23] MEDS: FERROUS SULFATE (EC) 325 MG TAB PO SCH ×2 (09:29→20:54)
[2016-05-23] MEDS: AZATHIOPRINE 50 MG TAB PO SCH (09:29)
[2016-05-23] MEDS: AMLODIPINE 2.5 MG TAB PO SCH (09:31)
[2016-05-23] MEDS: LOSARTAN 25 MG TAB PO SCH ×2 (09:31→20:55)
[2016-05-23] MEDS: HYDROCORTISONE 2.5% 20 GM CR TOP SCH ×2 (09:32→20:55)
[2016-05-23] MEDS: FLUTICASONE 0.05% 16 GM NAS SPRAY NASAL SCH ×2 (09:33→20:41)
[2016-05-23] MEDS: BACITRACIN 0.5%/ZINC 28.35 GM OINT TOP SCH ×2 (09:33→20:55)
[2016-05-23] MEDS: VANCOMYCIN 1 GM in NS 250 ML IVPB SCH ×2 (11:00→23:03)
--- NOTE | 2016-05-23 13:27 | PN ---
DATE: 05/23/2016 INFECTIOUS DISEASE PROGRESS NOTE SUBJECTIVE: No events overnight. The patient is spiking fevers. She is lying comfortably in bed. Still has significant pain in her left lower extremity. WBC today 9.6, platelets 257, no shift, no bands. BUN 10, creatinine 0.61. MICROBIOLOGY: Blood culture growing gram-negative rods and Streptococcus agalactia, left lower extr emity wound growing Streptococcus agalactiae. Urine culture negative. DIAGNOSTICS: MRI of left lower extremity revealed cellulitis, no evidence of acute fracture or oste omyelitis. Chest x-ray on admission revealed mild pulmonary vascular congestion. ANTIMICROBIALS: The patient is on: 1. IV vancomycin. 2. Cefepime. PHYSICAL EXAMINATION: GENERAL: is a fragile, well-developed vancomycin and cefepime. This is a fragile, well-developed, elderly woman who is alert, in no distress. HEENT: Head atraumatic, normocephalic. Sclerae anicteric. Buccal mucosa dry. NECK: Supple. CHEST: Rise symmetrical. Breath sounds clear. HEART: S1, S2. ABDOMEN: Soft. Bowel sounds present. EXTREMITIES: Left lower extremity dressing intact below knee. ASSESSMENT: 1. Sepsis with polymicrobial bacteremia, likely secondary to #2. 2. Left lower extremity infected wound, no evidence of osteomyelitis so far. 3. Diabetes. 4. Hypertension. PLAN: We are going to continue her on current antimicrobials, order 2-D echo, repeat blood cultures , consider podiatry evaluation, and follow on final cultures. We will change cefepime to meropenem. Dictated By: ZURDO LANE TECHNICAL OPERATIONS VICE PRESIDENT for SUKHI ARDON/TORREY Conf#: [id number] DID#: [id number]
[2016-05-23] MEDS: MEROPENEM 500 MG/100 ML (PMX) 100 ML IVPB SCH ×2 (14:36→21:29)
--- NOTE | 2016-05-23 14:46 | PN ---
Date/Time of Note Date/Time of Note DATE: 05/23/16 TIME: 14:44 Assessment/Plan VTE Prophylaxis VTE Prophylaxis Intervention: LMWH Lines/Catheters IV [facility]ter Type (from [facility]): Saline Lock Urinary Cath still in place: No Assessment/Plan Chief Complaint/Hosp Course IMPRESSION: 1. Sepsis as evidenced by fever, tachycardia, secondary to left lower extremity cellulitis. Continue vancomycin and cefepime, infectious disease doctor has been consulted 2. Recurrent left lower extremity cellulitis/wound. As above 3. Diabetes with hyperglycemia. Hemoglobin A1c of 10.9, better controlled at this time continue Lantus insulin sliding scale low-carb diet 4. Hypertension. Well-controlled on medical management 5. 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 Hypothyroidism. Continue levothyroxine 7. Dyslipidemia. Continue statin We will continue monitor patient closely for recommendation management treatment as clinical course Plan to discharge home tomorrow on 05/24/2016, home antibiotics as per infectious disease recommendations Problems: Subjective 24 Hr Interval Summary Free Text/Dictation Patient continues to complain of having left lower extremity pain No nausea vomiting diarrhea Denies of any chest pain Exam/Review of Systems Vital Signs Vitals Vital Signs Date Time Temp Pulse Resp B/P Pulse Ox O2 Delivery O2 Flow Rate FiO2 05/23/16 08:03 101.9 101 21 122/58 97 05/20/16 20:43 Nasal Cannula 3.0 Intake and Output 05/22/16 05/22/16 05/23/16 15:00 23:00 07:00 Intake Total 200 ml 1330 ml 1430 ml Output Total 1500 ml Balance 200 ml -170 ml 1430 ml Exam General: The patient is well-developed, Not in acute distress. HEENT: Atraumatic, normocephalic. The pupils are equal and round . Neck: Supple with full range of motion. Chest: Normal expansion of the thorax during inspiration Lungs: Clear to auscultation bilaterally Heart: Normal S1-S2, Regular rhythm and rate. Abdomen: Soft , nontender, nondistended , bowel sounds are present. Extremities: Left lower extremity diabetic ulcer on the valente, no edema no cyanosis Neurologic: Normal mental status,The patient is awake, alert and oriented . Results Result Diagram: 05/23/16 0549 05/23/16 0549 Results 24 hrs Laboratory Tests Test 05/22/16 17:22 05/22/16 20:45 05/22/16 21:59 05/23/16 05:49 Bedside Glucose 131 149 Vancomycin Level Trough 6.1 L White Blood Count 9.6 Red Blood Count 4.42 Hemoglobin 10.1 L Hematocrit 33.0 L Mean Corpuscular Volume 74.7 L Mean Corpuscular Hemoglobin 22.9 L Mean Corpuscular Hemoglobin Concent 30.6 L Red Cell Distribution Width 17.9 H Platelet Count 257 # Mean Platelet Volume 10.7 H Neutrophils % 65.5 Lymphocytes % 21.9 Monocytes % 10.3 Eosinophils % 1.5 Basophils % 0.3 Nucleated Red Blood Cells % 0.0 Neutrophils # 6.3 Lymphocytes # 2.1 Monocytes # 1.0 H Eosinophils # 0.1 Basophils # 0.0 Nucleated Red Blood Cells # 0.0 Sodium Level 136 Potassium Level 3.7 Chloride Level 99 Carbon Dioxide Level 24 Anion Gap 17 H Blood Urea Nitrogen 10 Creatinine 0.61 Glucose Level 121 Calcium Level 8.2 L Magnesium Level 1.6 L Test 05/23/16 07:55 05/23/16 11:44 Bedside Glucose 100 134 Medications Medications Current Medications Morphine Sulfate (morphine) 2 mg Q4H PRN IV pain Last administered on 05/23/16 02:53; Admin Dose 2 MG; Start 05/20/16 at 22:00 Acetaminophen (Tylenol Tab) 650 mg Q4H PRN PO PAIN AND OR ELEVATED TEMP Last administered on 05/23/16 08:00; Admin Dose 650 MG; Start 05/20/16 at 22:00 Ondansetron HCl (Zofran Inj) 4 mg Q6H PRN IV NAUSEA AND/OR VOMITING; Start 05/20 at 22:00 Insulin Glargine (Lantus) 20 unit DAILY@20 SC Last administered on 05/22/16 20: 52; Admin Dose 20 UNIT; Start 05/21/16 at 20:00 Diagnostic Test (Pha) (Accu-Chek) 1 ea 02 XX Last administered on 05/21/16 02: 45; Admin Dose 1 EA; Start 05/21/16 at 02:00 Miscellaneous Information 1 ea NOTE XX ; Start 05/20/16 at 22:30 Glucose (Glutose) 15 gm Q15M PRN PO DECREASED GLUCOSE; Start 05/20/16 at 22:30 Glucose (Glutose) 22.5 gm Q15M PRN PO DECREASED GLUCOSE; Start 05/20/16 at 22:30 Dextrose (D50w Syringe) 25 ml Q15M PRN IV DECREASED GLUCOSE; Start 05/20/16 at 22:30 Dextrose (D50w Syringe) 50 ml Q15M PRN IV DECREASED GLUCOSE; Start 05/20/16 at 22:30 Glucagon (Glucagen) 1 mg Q15M PRN IM DECREASED GLUCOSE; Start 05/20/16 at 22:30 Glucose (Glutose) 15 gm Q15M PRN BUCCAL DECREASED GLUCOSE; Start 05/20/16 at 22: 30 Aspirin (Halfprin) 81 mg DAILY PO Last administered on 05/23/16 09:29; Admin Dose 81 MG; Start 05/21/16 at 09:00 Atorvastatin Calcium (Lipitor) 40 mg DAILY PO Last administered on 05/23/16 09: 29; Admin Dose 40 MG; Start 05/21/16 at 09:00 Azathioprine (Imuran) 50 mg DAILY PO Last administered on 05/23/16 09:29; Admin Dose 50 MG; Start 05/21/16 at 09:00 Bacitracin (Bacitracin 0.5%/ Zinc Oint) 2 applic BID TOP Last administered on 09:33; Admin Dose 2 APPLIC; Start 05/21/16 at 09:00 Ferrous Sulfate (Ferrous Sulfate (Ec)) 325 mg BID PO Last administered on 09:29; Admin Dose 325 MG; Start 05/21/16 at 09:00 Fluticasone Propionate (Flonase 0.05% Nasal) 1 spray BID NASAL Last administered on 05/23/16 09:33; Admin Dose 1 SPRAY; Start 05/21/16 at 09:00 Hydrocortisone (Hydrocortisone 2.5% Cr) 1 applic BID TOP Last administered on 09:32; Admin Dose 1 APPLIC; Start 05/21/16 at 09:00 Nortriptyline HCl (Aventyl) 10 mg HS PO Last administered on 05/22/16 21:01; Admin Dose 10 MG; Start 05/21/16 at 21:00 Amlodipine Besylate (Norvasc) 2.5 mg QAM PO Last administered on 05/23/16 09:31 ; Admin Dose 2.5 MG; Start 05/22/16 at 09:00 Losartan Potassium (Cozaar) 25 mg BID PO Last administered on 05/23/16 09:31; Admin Dose 25 MG; Start 05/21/16 at 21:00 Acetaminophen/ Hydrocodone Bitart ([place] (10/325)) 1 tab Q4H PRN PO PAIN Last administered on 05/22/16 19:39; Admin Dose 1 TAB; Start 05/21/16 at 14:00 Docusate Sodium (Colace) 100 mg DAILY PO Last administered on 05/23/16 09:29; Admin Dose 100 MG; Start 05/22/16 at 15:00 Polyethylene Glycol (Miralax) 17 gm DAILY PRN PO CONSTIPATION; Start 05/22/16 at 15:00 Senna 1 tab 1 tab QPM PO Last administered on 05/22/16 20:47; Admin Dose 1 TAB ; Start 05/22/16 at 21:00 Vancomycin HCl 250 ml @ 125 mls/hr Q12H IVPB Last administered on 05/23/16 11: 00; Admin Dose 125 MLS/HR; Start 05/22/16 at 23:00 Meropenem (Merrem 500 Mg/ 100 ml (Pmx)) 100 ml @ 200 mls/hr Q8 IVPB Last administered on 05/23/16 14:36; Admin Dose 200 MLS/HR; Start 05/23/16 at 14:00 Magnesium Oxide (Mag-Ox 400) 400 mg BID PO ; Start 05/23/16 at 15:00; Status MICHAEL MILLER MD May 23, 2016 14:46
[2016-05-23] MEDS: MAGNESIUM OXIDE 400 MG TAB PO SCH (15:04)
[2016-05-23] MEDS: HYDROCODONE/APAP (10/325) TAB PO PRN (18:16)
--- NOTE | 2016-05-23 18:39 | RADRPT ---
Echocardiogram Report Patient Name: MAKENNA CASEY Gender: Female Date: 1950 Study Date: 23-May-2016 General Manager In Training: [facility] Location: [id number] Physician: [address] Quality: Technically Difficult Study Procedures: Transthoracic echocardiogram with complete 2D, M-Mode, and doppler examination. Indications: R/O VEGETATIONS. 2D/M Mode Doppler Measurement Value Normal Ranges Measurement Value Normal Ranges AV Peak Anthony 1.6 m/sec AV Peak PG 11.0 mmHg LVOT Peak Anthony 1.2 m/sec LVOT Peak PG 6.0 mmHg MV E Peak Anthony 1.2 m/sec MV A Peak Anthony 1.6 m/sec MV E/A 0.7 MV Decel Time 292 msec MV E/A 0.7 Findings Left Ventricle: Normal left ventricular systolic function. Normal left ventricular cavity size. Left ventricular wall thickness upper limits of normal. Tissue Doppler/Mitral Doppler indices are consistent with impaired relaxation (Stage I diastolic dysfunction). Right Ventricle: Normal right ventricular size. Left Atrium: The left atrium is normal in size. Right Atrium: The right atrium is normal in size. Mitral Valve: Mild mitral leaflet calcification. Mild mitral annular calcification. Trace mitral regurgitation. Aortic Valve: Trace aortic valve regurgitation. Tricuspid Valve: Tricuspid valve not well visualized. There is trace tricuspid regurgitation. Pericardium: Normal pericardium with no significant pericardial effusion. Aorta: Normal aortic root. IVC: The IVC is not well visualized. Conclusions 1.Normal left ventricular systolic function. Normal left ventricular cavity size. Left ventricular wall thickness upper limits of normal. Tissue Doppler/Mitral Doppler indices are consistent with impaired relaxation (Stage I diastolic dysfunction). 2.Trace aortic valve regurgitation. 3.Mild mitral leaflet calcification. Mild mitral annular calcification. Trace mitral regurgitation. 4.Tricuspid valve not well visualized. There is trace tricuspid regurgitation. Electronically Signed By: Bello Fields 23-May-2016 18:39:38 -0700 Patient Name: MAKENNA CASEY Study Date: 23-May-[id number]
[2016-05-23 19:35] VITALS: BP 141/66; RESP 18
--- NOTE | 2016-05-23 19:40 | CONS ---
DATE OF ADMISSION: 05/20/2016 DATE OF CONSULTATION: 05/23/2016 REFERRING PHYSICIAN: Eladio Erwin MD REASON FOR CONSULTATION: Left lower extremity cellulitis. HISTORY OF PRESENT ILLNESS: This is a 66-year-old female, [place] speaking, with cellulitis of the left lower extremity for approximately 1 week duration. The patient relates spontaneous skin lesion s involving both lower extremities with calcification. The patient currently relates fevers and chi lls. She is currently on meropenem. The patient's wound reveals Streptococcus agalactia and blood cultures with gram-negative rods and Streptococcus agalactia. The patient had radiographs revealing intermediate areas of calcification periosteal reaction, possible sequela of chronic inflammatory p rocess, no soft tissue gas. MRI reveals anterior soft tissue swelling with multifocal dystrophic ca lcifications with nonspecific edema of the proximal tibialis muscle belly. No evidence of drainable fluid collection. PAST MEDICAL HISTORY: Diabetes type 2, hypertension, hyperlipidemia, hypergammaglobulinemia, hypoth yroidism. ALLERGIES: NONE. SOCIAL HISTORY: Denies any smoking, alcohol, or illicit drug use. FAMILY HISTORY: None. PHYSICAL EXAMINATION: VITAL SIGNS: Temperature 101.9, pulse is 101, respiratory rate 21, blood pressure 122/58, pulse oxi metry is 97%. GENERAL: The patient alert, oriented. HEAD: Normocephalic, atraumatic. Trachea is midline. PULMONARY: Regular respiration, nonlabored. EXTREMITIES: The patient has multiple palpable nodules, bilateral lower extremity versus calcificat ions versus bony prominences left proximal lower leg with ulceration 2 x 3 mm with purulent drainage . There is pain with palpation. There is ascending cellulitis approximately 3 cm. No calf pain. No pain with passive range of motion of ankle. No evidence of varus valgus instability of the ankle or leg. The patient with edema of the anterior lateral left lower leg. There is malodor from the ulceration. No evidence of gangrenous tissue formation. LABORATORIES: WBC 9.6, hemoglobin 10.1, hematocrit 33, platelets 257. Sodium 136, potassium 3.7, c hloride 99, BUN 10, creatinine 0.61, glucose 121. Wound culture Strep agalactiae group B. Urine cu lture no growth. Blood cultures 05/20/2016 reveals gram-negative rods and strep agalactia. MRI, no evidence of fracture, osteomyelitis, no drainable fluid collection. X-rays indeterminate areas of calcification, periosteal reaction anterior tibial surface, possible sequela of chronic inflammatory reaction. A 2D echo pending. ASSESSMENT: 1. Left lower extremity cellulitis. 2. Sepsis. 3. Diabetes with hyperglycemia. 4. Edema, left lower extremity. PLAN: Patient seen and evaluated, reviewed culture results, reviewed the x-rays, MRI. No clinical radiographic signs of abscess. Recommend b.i.d. cleansing with Betadine and application of clindamy gen. The patient currently on meropenem. There was draining purulence, which was cultured. Skin c are, wound care performed. Nursing recommendations given and coordination of care with b.i.d. wound care recommendations given. Recommend tight glycemic control. The patient likely with delayed wou nd healing given being immunosuppressive medication including Imuran and prednisone. We will contin ue to monitor. No surgical recommendations at this time. Dictated By: CHAPIS CHIANG/TORREY Conf#: [id number] DID#: [id number]
[2016-05-23] MEDS: INSULIN GLARGINE [LANtus] 3 ML PEN SC SCH (20:44)
[2016-05-23] MEDS: SENNA TAB PO SCH (20:54)
[2016-05-23] MEDS: NORTRIPTYLINE 10 MG CAP PO SCH (20:54)
[2016-05-23] MEDS: CLINDAMYCIN 1% 30 GM GEL TOP SCH (21:00)
[2016-05-24] MEDS: ACCU-CHEK XX SCH (00:55)
[2016-05-24] MEDS: morphine 2 MG INJ IV PRN ×2 (05:27→22:22)
[2016-05-24] MEDS: MEROPENEM 500 MG/100 ML (PMX) 100 ML IVPB SCH ×3 (05:33→22:22)
[2016-05-24 05:42] LABS: ADD SCAN DIFF NO
[2016-05-24 05:45] LABS: BASOPHILS % 0.1 % (0.0-2.0); EOSINOPHILS # 0.2 10^3/ul (0.0-0.5); EOSINOPHILS % 1.9 % (0.0-7.0); HEMATOCRIT 34.3 % (37.0-47.0); HEMOGLOBIN 10.4 g/dl (12.0-16.0); LYMPHOCYTES # 1.7 10^3/ul (0.8-2.9); LYMPHOCYTES % 20.6 % (15.0-51.0); MEAN CORPUSCULAR HEMOGLOBIN 22.9 pg (29.0-33.0); MEAN CORPUSCULAR HGB CONC 30.3 g/dl (32.0-37.0); MEAN CORPUSCULAR VOLUME 75.6 fl (82.0-101.0); MEAN PLATELET VOLUME 10.4 fl (7.4-10.4); MONOCYTE # 1.1 10^3/ul (0.3-0.9); MONOCYTES % 13.1 % (0.0-11.0); NEUTROPHIL # 5.3 10^3/ul (1.6-7.5); NEUTROPHILS % 64.1 % (39.0-77.0); PLATELET COUNT 261 10^3/UL (140-415); RED BLOOD COUNT 4.54 10^6/ul (4.20-5.40); WHITE BLOOD COUNT 8.3 10^3/ul (4.8-10.8)
[2016-05-24 06:07] LABS: POTASSIUM 3.8 mmol/L (3.5-5.1)
[2016-05-24 06:10] LABS: CREATININE 0.58 mg/dl (0.44-1.00)
[2016-05-24 06:11] LABS: CALCIUM 7.9 mg/dl (8.4-10.2); MAGNESIUM 1.7 mg/dl (1.7-2.5)
[2016-05-24] MEDS: ACETAMINOPHEN 325 MG TAB PO PRN (06:49)
[2016-05-24] MEDS: LEVOTHYROXINE 88 MCG TAB PO SCH (06:49)
[2016-05-24 07:44] VITALS: BP 118/61; RESP 18
[2016-05-24] MEDS: INSULIN ASPART [NOVOLOG] 3 ML PEN SC SCH ×7 (08:15→20:34)
[2016-05-24] MEDS: DOCUSATE SODIUM 100 MG CAP PO SCH (08:48)
[2016-05-24] MEDS: ATORVASTATIN 40 MG TAB PO SCH (08:48)
[2016-05-24] MEDS: metFORMIN 500 MG TAB PO SCH ×2 (08:48→17:19)
[2016-05-24] MEDS: LOSARTAN 25 MG TAB PO SCH ×2 (08:49→21:01)
[2016-05-24] MEDS: AZATHIOPRINE 50 MG TAB PO SCH (08:49)
[2016-05-24] MEDS: FERROUS SULFATE (EC) 325 MG TAB PO SCH ×2 (08:49→21:00)
[2016-05-24] MEDS: MAGNESIUM OXIDE 400 MG TAB PO SCH ×2 (08:49→21:01)
[2016-05-24] MEDS: ASPIRIN (EC) 81 MG TAB PO SCH (08:49)
[2016-05-24] MEDS: FLUTICASONE 0.05% 16 GM NAS SPRAY NASAL SCH ×2 (08:50→20:33)
[2016-05-24] MEDS: AMLODIPINE 2.5 MG TAB PO SCH (08:50)
[2016-05-24] MEDS: HYDROCORTISONE 2.5% 20 GM CR TOP SCH ×2 (08:50→20:33)
[2016-05-24] MEDS: BACITRACIN 0.5%/ZINC 28.35 GM OINT TOP SCH ×2 (09:00→20:34)
[2016-05-24] MEDS: VANCOMYCIN 1 GM in NS 250 ML IVPB SCH (11:00)
[2016-05-24] MEDS: CLINDAMYCIN 1% 30 GM GEL TOP SCH ×2 (14:28→21:02)
--- NOTE | 2016-05-24 16:10 | PN ---
DATE: 05/24/2016 INFECTIOUS DISEASE PROGRESS NOTE SUBJECTIVE: The patient is alert, lying comfortably in bed. No fevers. She is afebrile. She is s till having left lower extremity pain. WBC today 8.3, no shift, no bands. BUN 9, creatinine 0.58. MICROBIOLOGY: Blood culture growing gram-negative rods and Strep agalactiae. Left lower extremity wound culture growing strep. Repeat blood cultures remain negative. ANTIMICROBIALS: The patient is on 1. Vancomycin. 2. Meropenem. OBJECTIVE: GENERAL: Well-nourished, well-developed, elderly woman who is alert, in no distress. HEENT: Head atraumatic, normocephalic. Sclerae anicteric. Buccal mucosa pink. NECK: Supple, trachea midline. CHEST: Rise symmetrical. Breath sounds diminished to bases. HEART: S1, S2. ABDOMEN: Soft, bowel tones present. EXTREMITIES: Left lower extremity dressing intact. ASSESSMENT: 1. Sepsis, resolving. 2. Polymicrobial bacteremia, likely secondary to #3. 3. Left lower extremity infected wound, no evidence for osteomyelitis per MRI. 4. Diabetes. 5. Hypertension. PLAN: The patient remains stable, covered with broad spectrum antibiotics. She is growing gram-neg ative rods and strep in her blood and strep in the wound. We are going to discontinue vancomycin, k eep her on meropenem, and await final cultures. Continue local wound care as per podiatry recommend ations. Consider PICC line. The patient will need to be on IV antibiotics for 2 weeks to complete treatment for bacteremia. Once we have final cultures back, we will adjust her antibiotics. Dictated By: ZURDO LANE FUR SCRAPER for SUKHI ARDON/TORREY Conf#: [id number] DID#: [id number]
--- NOTE | 2016-05-24 17:31 | PN ---
Date/Time of Note Date/Time of Note DATE: 05/24/16 TIME: 17:28 Assessment/Plan VTE Prophylaxis VTE Prophylaxis Intervention: heparin Lines/Catheters IV [facility]from [facility] Saline Lock Urinary Cath still in place: No Assessment/Plan Assessment/Plan 1. Sepsis as evidenced by fever, tachycardia, secondary to left lower extremity cellulitis. Blood cx grew gram negative rods and Strep in blood, vancomycin stopped, continued on IV meropenem, 2. Recurrent left lower extremity cellulitis/wound. 3. Diabetes with hyperglycemia. 4. Hypertension. 5. 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 Hypothyroidism. 7. Dyslipidemia. Blood Cx grew gram negative rods and Strep, vanocmycin stopped today, currently on IV abx meropenem, will have to wait until final blood cx results and sensitivity to narrow down abx plan Exam/Review of Systems Vital Signs Vitals Vital Signs Date Time Temp Pulse Resp B/P Pulse Ox O2 Delivery O2 Flow Rate FiO2 05/24/16 07:44 98.7 90 18 118/61 98 05/20/16 20:43 Nasal Cannula 3.0 Intake and Output 05/23/16 05/23/16 05/24/16 15:00 23:00 07:00 Intake Total 250 ml 1060 ml 1150 ml Output Total 600 ml Balance 250 ml 1060 ml 550 ml Exam GENERAL: Well-nourished, well-developed, elderly woman who is alert, in no distress. HEENT: Head atraumatic, normocephalic. Sclerae anicteric. Buccal mucosa pink. NECK: Supple, trachea midline. CHEST: Rise symmetrical. Breath sounds diminished to bases. HEART: S1, S2. ABDOMEN: Soft, bowel tones present. EXTREMITIES: Left lower extremity dressing intact. Results Result Diagram: 05/24/1620 05/24/16519 Results 24 hrs Laboratory Tests Test 05/23/16 20:39 05/24/16 05:20 05/24/16 08:27 05/24/16 11:47 Bedside Glucose 125 95 127 White Blood Count 8.3 Red Blood Count 4.54 Hemoglobin 10.4 L Hematocrit 34.3 L Mean Corpuscular Volume 75.6 L Mean Corpuscular Hemoglobin 22.9 L Mean Corpuscular Hemoglobin Concent 30.3 L Red Cell Distribution Width 18.0 H Platelet Count 261 Mean Platelet Volume 10.4 Neutrophils % 64.1 Lymphocytes % 20.6 Monocytes % 13.1 H Eosinophils % 1.9 Basophils % 0.1 Nucleated Red Blood Cells % 0.0 Neutrophils # 5.3 Lymphocytes # 1.7 Monocytes # 1.1 H Eosinophils # 0.2 Basophils # 0.0 Nucleated Red Blood Cells # 0.0 Sodium Level 133 L Potassium Level 3.8 Chloride Level 102 Carbon Dioxide Level 25 Anion Gap 10 # Blood Urea Nitrogen 9 Creatinine 0.58 Glucose Level 113 Calcium Level 7.9 L Magnesium Level 1.7 Test 05/24/16 17:11 Bedside Glucose 138 Medications Medications Current Medications Morphine Sulfate (morphine) 2 mg Q4H PRN IV pain Last administered on 05/24/16 05:27; Admin Dose 2 MG; Start 05/20/16 at 22:00 Acetaminophen (Tylenol Tab) 650 mg Q4H PRN PO PAIN AND OR ELEVATED TEMP Last administered on 05/24/16 06:49; Admin Dose 650 MG; Start 05/20/16 at 22:00 Ondansetron HCl (Zofran Inj) 4 mg Q6H PRN IV NAUSEA AND/OR VOMITING; Start 05/20 at 22:00 Insulin Glargine (Lantus) 20 unit DAILY@20 SC Last administered on 05/23/16 20: 44; Admin Dose 20 UNIT; Start 05/21/16 at 20:00 Diagnostic Test (Pha) (Accu-Chek) 1 ea 02 XX Last administered on 05/21/16 02: 45; Admin Dose 1 EA; Start 05/21/16 at 02:00 Miscellaneous Information 1 ea NOTE XX ; Start 05/20/16 at 22:30 Glucose (Glutose) 15 gm Q15M PRN PO DECREASED GLUCOSE; Start 05/20/16 at 22:30 Glucose (Glutose) 22.5 gm Q15M PRN PO DECREASED GLUCOSE; Start 05/20/16 at 22:30 Dextrose (D50w Syringe) 25 ml Q15M PRN IV DECREASED GLUCOSE; Start 05/20/16 at 22:30 Dextrose (D50w Syringe) 50 ml Q15M PRN IV DECREASED GLUCOSE; Start 05/20/16 at 22:30 Glucagon (Glucagen) 1 mg Q15M PRN IM DECREASED GLUCOSE; Start 05/20/16 at 22:30 Glucose (Glutose) 15 gm Q15M PRN BUCCAL DECREASED GLUCOSE; Start 05/20/16 at 22: 30 Aspirin (Halfprin) 81 mg DAILY PO Last administered on 05/24/16 08:49; Admin Dose 81 MG; Start 05/21/16 at 09:00 Atorvastatin Calcium (Lipitor) 40 mg DAILY PO Last administered on 05/24/16 08: 48; Admin Dose 40 MG; Start 05/21/16 at 09:00 Azathioprine (Imuran) 50 mg DAILY PO Last administered on 05/24/16 08:49; Admin Dose 50 MG; Start 05/21/16 at 09:00 Bacitracin (Bacitracin 0.5%/ Zinc Oint) 2 applic BID TOP Last administered on 20:55; Admin Dose 2 APPLIC; Start 05/21/16 at 09:00 Ferrous Sulfate (Ferrous Sulfate (Ec)) 325 mg BID PO Last administered on 08:49; Admin Dose 325 MG; Start 05/21/16 at 09:00 Fluticasone Propionate (Flonase 0.05% Nasal) 1 spray BID NASAL Last administered on 05/24/16 08:50; Admin Dose 1 SPRAY; Start 05/21/16 at 09:00 Hydrocortisone (Hydrocortisone 2.5% Cr) 1 applic BID TOP Last administered on 08:50; Admin Dose 1 APPLIC; Start 05/21/16 at 09:00 Nortriptyline HCl (Aventyl) 10 mg HS PO Last administered on 05/23/16 20:54; Admin Dose 10 MG; Start 05/21/16 at 21:00 Amlodipine Besylate (Norvasc) 2.5 mg QAM PO Last administered on 05/24/16 08:50 ; Admin Dose 2.5 MG; Start 05/22/16 at 09:00 Losartan Potassium (Cozaar) 25 mg BID PO Last administered on 05/24/16 08:49; Admin Dose 25 MG; Start 05/21/16 at 21:00 Acetaminophen/ Hydrocodone Bitart ([place] (10/325)) 1 tab Q4H PRN PO PAIN Last administered on 05/23/16 18:16; Admin Dose 1 TAB; Start 05/21/16 at 14:00 Docusate Sodium (Colace) 100 mg DAILY PO Last administered on 05/24/16 08:48; Admin Dose 100 MG; Start 05/22/16 at 15:00 Polyethylene Glycol (Miralax) 17 gm DAILY PRN PO CONSTIPATION; Start 05/22/16 at 15:00 Senna 1 tab 1 tab QPM PO Last administered on 05/23/16 20:54; Admin Dose 1 TAB ; Start 05/22/16 at 21:00 Vancomycin HCl 250 ml @ 125 mls/hr Q12H IVPB Last administered on 05/24/16 11: 00; Admin Dose 125 MLS/HR; Start 05/22/16 at 23:00 Meropenem (Merrem 500 Mg/ 100 ml (Pmx)) 100 ml @ 200 mls/hr Q8 IVPB Last administered on 05/24/16 15:42; Admin Dose 200 MLS/HR; Start 05/23/16 at 14:00 Magnesium Oxide (Mag-Ox 400) 400 mg BID PO Last administered on 05/24/16 08:49 ; Admin Dose 400 MG; Start 05/23/16 at 15:00 Clindamycin Phosphate (Clindamycin 1% Gel) 1 applic BID TOP Last administered on 05/24/16 14:28; Admin Dose 1 APPLIC; Start 05/23/16 at 21:00 Miscellaneous Information (*Rx Drug Level Order Reminder*) VANCOMYCIN TROUGH 05/24 AT 2200 ONCE ONCE XX ; Start 05/24/16 at 22:00; Stop 05/24/16 at 22:01 ZAK OTERO MD May 24, 2016 17:31
[2016-05-24 20:13] VITALS: BP 137/65; RESP 18
[2016-05-24] MEDS: INSULIN GLARGINE [LANtus] 3 ML PEN SC SCH (20:40)
[2016-05-24] MEDS: NORTRIPTYLINE 10 MG CAP PO SCH (21:00)
[2016-05-24] MEDS: SENNA TAB PO SCH (21:01)
[2016-05-24] MEDS: HEPARIN 5,000 UNIT/0.5 ML VIAL SC SCH (21:06)
[2016-05-25] MEDS: VANCOMYCIN 1 GM in NS 250 ML IVPB SCH (00:07)
[2016-05-25] MEDS: ACCU-CHEK XX SCH (01:21)
[2016-05-25] MEDS: MEROPENEM 500 MG/100 ML (PMX) 100 ML IVPB SCH ×2 (05:37→14:00)
[2016-05-25 06:21] LABS: ADD SCAN DIFF NO
[2016-05-25 06:28] LABS: BASOPHILS % 0.3 % (0.0-2.0); EOSINOPHILS # 0.2 10^3/ul (0.0-0.5); EOSINOPHILS % 2.3 % (0.0-7.0); HEMATOCRIT 33.7 % (37.0-47.0); LYMPHOCYTES # 1.8 10^3/ul (0.8-2.9); LYMPHOCYTES % 24.9 % (15.0-51.0); MEAN CORPUSCULAR HEMOGLOBIN 22.6 pg (29.0-33.0); MEAN CORPUSCULAR HGB CONC 29.7 g/dl (32.0-37.0); MEAN CORPUSCULAR VOLUME 76.1 fl (82.0-101.0); MEAN PLATELET VOLUME 10.1 fl (7.4-10.4); MONOCYTES % 13.1 % (0.0-11.0); NEUTROPHIL # 4.3 10^3/ul (1.6-7.5); NEUTROPHILS % 58.9 % (39.0-77.0); PLATELET COUNT 266 10^3/UL (140-415); RED BLOOD COUNT 4.43 10^6/ul (4.20-5.40); RED CELL DISTRIBUTION WIDTH 18.3 % (11.5-14.5); WHITE BLOOD COUNT 7.3 10^3/ul (4.8-10.8)
[2016-05-25] MEDS: LEVOTHYROXINE 88 MCG TAB PO SCH (06:42)
[2016-05-25 06:44] LABS: INR 1.17; PT RATIO 1.2
[2016-05-25 06:45] LABS: PARTIAL THROMBOPLASTIN TIME 40.4 Sec (25.0-35.0)
[2016-05-25 07:12] LABS: POTASSIUM 3.6 mmol/L (3.5-5.1)
[2016-05-25 07:15] LABS: CREATININE 0.53 mg/dl (0.44-1.00)
--- NOTE | 2016-05-25 07:38 | CONS ---
DATE OF ADMISSION: 05/20/2016 DATE OF CONSULTATION: 05/24/2016 SUBJECTIVE FINDINGS: The patient for followup of left lower extremity cellulitis. The patient is on meropenem. Cultures obtained from yesterday are pending. Recent blood cultures no growth to date. The patient has slight decrease in her pain, 5/10, down from 10/10. OBJECTIVE FINDINGS: VITAL SIGNS: Temperature 99.7, pulse 93, respiratory rate 18, GENERAL: The patient alert and oriented, no acute distress. HEAD: Normocephalic, atraumatic. Trachea is midline. PULMONARY: Regular respiration. EXTREMITIES: The patient has a clean dressing. Decrease malodor. Edema persists. LABORATORIES: WBC 8.3 down from the time of admission of 6, hemoglobin 10.4, hematocrit 34.3, platelets 261. ASSESSMENT: Abscess, with left lower extremity cellulitis. The foot with an infected ulceration without evidence of osteomyelitis radiographically. WBC improved PLAN: Continue current topical antiseptic precautions. Coordination of care. Discussed with nursing. Clindamycin ointment topicallay, IV meropenem. Will continue to follow. Leukocytosis improved. Dictated By: CHAPIS VICTORIA DPM RB/TORREY Conf#: [id number] DID#: [id number] MTDD
[2016-05-25] MEDS: INSULIN ASPART [NOVOLOG] 3 ML PEN SC SCH ×7 (08:08→21:00)
[2016-05-25] MEDS: AZATHIOPRINE 50 MG TAB PO SCH (08:11)
[2016-05-25] MEDS: FERROUS SULFATE (EC) 325 MG TAB PO SCH ×2 (08:11→21:57)
[2016-05-25] MEDS: ASPIRIN (EC) 81 MG TAB PO SCH (08:11)
[2016-05-25] MEDS: DOCUSATE SODIUM 100 MG CAP PO SCH (08:11)
[2016-05-25] MEDS: AMLODIPINE 2.5 MG TAB PO SCH (08:11)
[2016-05-25] MEDS: metFORMIN 500 MG TAB PO SCH ×2 (08:11→17:26)
[2016-05-25] MEDS: FLUTICASONE 0.05% 16 GM NAS SPRAY NASAL SCH ×2 (08:12→22:05)
[2016-05-25] MEDS: LOSARTAN 25 MG TAB PO SCH ×2 (08:12→21:57)
[2016-05-25] MEDS: ATORVASTATIN 40 MG TAB PO SCH (08:12)
[2016-05-25] MEDS: BACITRACIN 0.5%/ZINC 28.35 GM OINT TOP SCH ×2 (08:12→21:58)
[2016-05-25] MEDS: HYDROCORTISONE 2.5% 20 GM CR TOP SCH ×2 (08:13→21:58)
[2016-05-25] MEDS: CLINDAMYCIN 1% 30 GM GEL TOP SCH ×2 (08:13→21:58)
[2016-05-25 08:17] VITALS: BP 127/61; RESP 16
[2016-05-25] MEDS: HEPARIN 5,000 UNIT/0.5 ML VIAL SC SCH ×2 (08:17→22:03)
[2016-05-25] MEDS: MAGNESIUM OXIDE 400 MG TAB PO SCH ×2 (08:18→21:57)
[2016-05-25] MEDS ORDERED: VANCOMYCIN 1.25 GM in SOD CHLORIDE 0.9% 250 ML IVPB SCH (11:00)
[2016-05-25] MEDS ORDERED: LIDOCAINE 1% (MDV) 20 ML INJ SC ONE (14:30)
[2016-05-25] MEDS: CEFTRIAXONE 2 GM/50 ML (PMX) 50 ML IVPB SCH (15:30)
--- NOTE | 2016-05-25 15:31 | PN ---
DATE: 05/25/2016 SUBJECTIVE: The patient is alert, complaining of left lower extremity pain. She is lying comfortab ly in bed, afebrile. LABORATORY DATA: WBC 7.3, no shift, no bands. BUN 9, creatinine 0.53. MICROBIOLOGY: Blood culture grew Strep agalactiae and Bacteroides fragilis. Wound culture growing Strep agalactiae and group D, not enterococcus, susceptible essentially to all antibiotics except ci profloxacin. ANTIMICROBIALS: The patient is on: 1. IV vancomycin. 2. Clindamycin topical. 3. Meropenem. PHYSICAL EXAMINATION: GENERAL: Well-developed, elderly woman who is alert, in no distress. HEENT: Head atraumatic, normocephalic. Sclerae anicteric. Buccal mucosa dry. NECK: Supple, trachea midline. CHEST: Rise symmetrical. Breath sounds clear. HEART: S1, S2. ABDOMEN: Soft, bowel sounds present. EXTREMITIES: Left lower extremity dressing clean, dry and intact. ASSESSMENT: 1. Polymicrobial bacteremia, likely secondary to #2. 2. Left lower extremity cellulitis with acute on chronic wound. 3. Diabetes. 4. Hypertension. PLAN: The patient remains stable. We are going to discontinue vancomycin and Merrem, and start her on Rocephin and Flagyl for the coverage of Bacteroides fragilis. The patient needs a PICC line to complete 2 weeks IV Rocephin and oral Flagyl, or we can switch her to Invanz once daily that will co mk both strep and Bacteroides. Order for PICC line given. Dictated By: ZURDO LANE GLASSWARE VERIFIER for SUKHI ARDON/TORREY Conf#: [id number] DID#: [id number]
[2016-05-25 19:50] VITALS: BP 173/74; RESP 16
--- NOTE | 2016-05-25 20:26 | PN ---
Date/Time of Note Date/Time of Note DATE: 05/25/16 TIME: 20:24 Assessment/Plan VTE Prophylaxis VTE Prophylaxis Intervention: SCD's Lines/Catheters IV Catheter Type (from Nrs): Saline Lock Urinary Cath still in place: No Assessment/Plan Assessment/Plan 1. Sepsis as evidenced by fever, tachycardia, secondary to left lower extremity cellulitis. Blood cx grew gram negative rods and Strep in blood, vancomycin stopped, continued on IV meropenem, 2. Recurrent left lower extremity cellulitis/wound. 3. Diabetes with hyperglycemia. 4. Hypertension. 5. 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 Hypothyroidism. 7. Dyslipidemia. Blood Cx grew gram negative rods and Strep, vanocmycin stopped today, currently on IV abx meropenem, will have to wait until final blood cx results and sensitivity to narrow down abx plan Subjective 24 Hr Interval Summary Free Text/Dictation still c/o severe left foot pain, BP stable Exam/Review of Systems Vital Signs Vitals Vital Signs Date Time Temp Pulse Resp B/P Pulse Ox O2 Delivery O2 Flow Rate FiO2 05/25/16 19:50 98.6 91 16 173/74 98 Intake and Output 05/24/16 05/24/16 05/25/16 15:00 23:00 07:00 Intake Total 1340 ml 1070 ml Output Total 1400 ml Balance -60 ml 1070 ml Exam GENERAL: Well-nourished, well-developed, elderly woman who is alert, in no distress. HEENT: Head atraumatic, normocephalic. Sclerae anicteric. Buccal mucosa pink. NECK: Supple, trachea midline. CHEST: Rise symmetrical. Breath sounds diminished to bases. HEART: S1, S2. ABDOMEN: Soft, bowel tones present. EXTREMITIES: Left lower extremity dressing intact Results Result Diagram: 05/25/16 0535 05/25/16 0535 Results 24 hrs Laboratory Tests Test 05/24/16 20:31 05/24/16 22:30 05/25/16 05:35 05/25/16 08:08 Bedside Glucose 170 109 Vancomycin Level Trough 8.1 L White Blood Count 7.3 Red Blood Count 4.43 Hemoglobin 10.0 L Hematocrit 33.7 L Mean Corpuscular Volume 76.1 L Mean Corpuscular Hemoglobin 22.6 L Mean Corpuscular Hemoglobin Concent 29.7 L Red Cell Distribution Width 18.3 H Platelet Count 266 Mean Platelet Volume 10.1 Neutrophils % 58.9 Lymphocytes % 24.9 Monocytes % 13.1 H Eosinophils % 2.3 Basophils % 0.3 Nucleated Red Blood Cells % 0.0 Neutrophils # 4.3 Lymphocytes # 1.8 Monocytes # 1.0 H Eosinophils # 0.2 Basophils # 0.0 Nucleated Red Blood Cells # 0.0 Prothrombin Time 15.0 H Prothrombin Time Ratio 1.2 INR International Normalized Ratio 1.17 Activated Partial Thromboplast Time 40.4 H Sodium Level 135 Potassium Level 3.6 Chloride Level 100 Carbon Dioxide Level 24 Anion Gap 15 Blood Urea Nitrogen 9 Creatinine 0.53 Glucose Level 114 Calcium Level 8.0 L Test 05/25/16 12:15 05/25/16 17:23 Bedside Glucose 126 124 Medications Medications Current Medications Morphine Sulfate (morphine) 2 mg Q4H PRN IV pain Last administered on 05/24/16 22:22; Admin Dose 2 MG; Start 05/20/16 at 22:00 Acetaminophen (Tylenol Tab) 650 mg Q4H PRN PO PAIN AND OR ELEVATED TEMP Last administered on 05/24/16 06:49; Admin Dose 650 MG; Start 05/20/16 at 22:00 Ondansetron HCl (Zofran Inj) 4 mg Q6H PRN IV NAUSEA AND/OR VOMITING; Start 05/20 at 22:00 Insulin Glargine (Lantus) 20 unit DAILY@20 SC Last administered on 05/24/16 20: 40; Admin Dose 20 UNIT; Start 05/21/16 at 20:00 Diagnostic Test (Pha) (Accu-Chek) 1 ea 02 XX Last administered on 05/21/16 02: 45; Admin Dose 1 EA; Start 05/21/16 at 02:00 Miscellaneous Information 1 ea NOTE XX ; Start 05/20/16 at 22:30 Glucose (Glutose) 15 gm Q15M PRN PO DECREASED GLUCOSE; Start 05/20/16 at 22:30 Glucose (Glutose) 22.5 gm Q15M PRN PO DECREASED GLUCOSE; Start 05/20/16 at 22:30 Dextrose (D50w Syringe) 25 ml Q15M PRN IV DECREASED GLUCOSE; Start 05/20/16 at 22:30 Dextrose (D50w Syringe) 50 ml Q15M PRN IV DECREASED GLUCOSE; Start 05/20/16 at 22:30 Glucagon (Glucagen) 1 mg Q15M PRN IM DECREASED GLUCOSE; Start 05/20/16 at 22:30 Glucose (Glutose) 15 gm Q15M PRN BUCCAL DECREASED GLUCOSE; Start 05/20/16 at 22: 30 Aspirin (Halfprin) 81 mg DAILY PO Last administered on 05/25/16 08:11; Admin Dose 81 MG; Start 05/21/16 at 09:00 Atorvastatin Calcium (Lipitor) 40 mg DAILY PO Last administered on 05/25/16 08: 12; Admin Dose 40 MG; Start 05/21/16 at 09:00 Azathioprine (Imuran) 50 mg DAILY PO Last administered on 05/25/16 08:11; Admin Dose 50 MG; Start 05/21/16 at 09:00 Bacitracin (Bacitracin 0.5%/ Zinc Oint) 2 applic BID TOP Last administered on 08:12; Admin Dose 2 APPLIC; Start 05/21/16 at 09:00 Ferrous Sulfate (Ferrous Sulfate (Ec)) 325 mg BID PO Last administered on 08:11; Admin Dose 325 MG; Start 05/21/16 at 09:00 Fluticasone Propionate (Flonase 0.05% Nasal) 1 spray BID NASAL Last administered on 05/25/16 08:12; Admin Dose 1 SPRAY; Start 05/21/16 at 09:00 Hydrocortisone (Hydrocortisone 2.5% Cr) 1 applic BID TOP Last administered on 08:13; Admin Dose 1 APPLIC; Start 05/21/16 at 09:00 Nortriptyline HCl (Aventyl) 10 mg HS PO Last administered on 05/24/16 21:00; Admin Dose 10 MG; Start 05/21/16 at 21:00 Amlodipine Besylate (Norvasc) 2.5 mg QAM PO Last administered on 05/25/16 08:11 ; Admin Dose 2.5 MG; Start 05/22/16 at 09:00 Losartan Potassium (Cozaar) 25 mg BID PO Last administered on 05/25/16 08:12; Admin Dose 25 MG; Start 05/21/16 at 21:00 Acetaminophen/ Hydrocodone Bitart ([place] (10/325)) 1 tab Q4H PRN PO PAIN Last administered on 05/23/16 18:16; Admin Dose 1 TAB; Start 05/21/16 at 14:00 Docusate Sodium (Colace) 100 mg DAILY PO Last administered on 05/25/16 08:11; Admin Dose 100 MG; Start 05/22/16 at 15:00 Polyethylene Glycol (Miralax) 17 gm DAILY PRN PO CONSTIPATION; Start 05/22/16 at 15:00 Senna (Senokot) 1 tab QPM PO Last administered on 05/24/16 21:01; Admin Dose 1 TAB; Start 05/22/16 at 21:00 Magnesium Oxide (Mag-Ox 400) 400 mg BID PO Last administered on 05/25/16 08:18 ; Admin Dose 400 MG; Start 05/23/16 at 15:00 Clindamycin Phosphate (Clindamycin 1% Gel) 1 applic BID TOP Last administered on 05/25/16 08:13; Admin Dose 1 APPLIC; Start 05/23/16 at 21:00 Heparin Sodium (Porcine) 5000 unit 5,000 unit BID SC Last administered on 08:17; Admin Dose 5,000 UNIT; Start 05/24/16 at 21:00 Ceftriaxone Sodium (Rocephin) 50 ml @ 100 mls/hr Q24H IVPB ; Start 05/25/16 at 15:30 Metronidazole (Flagyl) 500 mg Q8 PO ; Start 05/25/16 at 22:00 ZAK OTERO MD May 25, 2016 20:26
[2016-05-25] MEDS: SENNA TAB PO SCH (21:56)
[2016-05-25] MEDS: metroNIDAZOLE 500 MG TAB PO SCH (21:56)
[2016-05-25] MEDS: NORTRIPTYLINE 10 MG CAP PO SCH (21:56)
[2016-05-25] MEDS: INSULIN GLARGINE [LANtus] 3 ML PEN SC SCH (22:03)
[2016-05-26] MEDS: ACCU-CHEK XX SCH (02:00)
[2016-05-26] MEDS: HYDROCODONE/APAP (10/325) TAB PO PRN ×2 (02:29→12:24)
[2016-05-26] MEDS: LEVOTHYROXINE 88 MCG TAB PO SCH (06:05)
[2016-05-26] MEDS: metroNIDAZOLE 500 MG TAB PO SCH ×3 (06:05→21:17)
[2016-05-26] MEDS: CLINDAMYCIN 1% 30 GM GEL TOP SCH ×3 (06:16→21:03)
[2016-05-26 07:38] VITALS: BP 129/60; RESP 18
[2016-05-26] MEDS: INSULIN ASPART [NOVOLOG] 3 ML PEN SC SCH ×7 (08:06→21:10)
[2016-05-26] MEDS: LOSARTAN 25 MG TAB PO SCH ×2 (08:07→21:02)
[2016-05-26] MEDS: ATORVASTATIN 40 MG TAB PO SCH (08:07)
[2016-05-26] MEDS: MAGNESIUM OXIDE 400 MG TAB PO SCH ×2 (08:07→21:01)
[2016-05-26] MEDS: FERROUS SULFATE (EC) 325 MG TAB PO SCH ×2 (08:07→21:01)
[2016-05-26] MEDS: AZATHIOPRINE 50 MG TAB PO SCH (08:07)
[2016-05-26] MEDS: DOCUSATE SODIUM 100 MG CAP PO SCH (08:07)
[2016-05-26] MEDS: ASPIRIN (EC) 81 MG TAB PO SCH (08:07)
[2016-05-26] MEDS: metFORMIN 500 MG TAB PO SCH ×2 (08:07→17:19)
[2016-05-26] MEDS: AMLODIPINE 2.5 MG TAB PO SCH (08:08)
[2016-05-26] MEDS: FLUTICASONE 0.05% 16 GM NAS SPRAY NASAL SCH ×2 (08:08→21:03)
[2016-05-26] MEDS: HYDROCORTISONE 2.5% 20 GM CR TOP SCH ×2 (08:08→21:03)
[2016-05-26] MEDS: BACITRACIN 0.5%/ZINC 28.35 GM OINT TOP SCH ×2 (08:08→21:03)
[2016-05-26] MEDS: HEPARIN 5,000 UNIT/0.5 ML VIAL SC SCH ×2 (08:17→21:11)
--- NOTE | 2016-05-26 11:50 | RADRPT ---
PROCEDURE: US guidance for PICC line CLINICAL INDICATION: PICC line placement TECHNIQUE: Multiple real-time images were acquired of the patient's arm utilizing a high resolutio n transducer. This was performed by the PICC line nurse for venous access. COMPARISON: None FINDINGS: Ultrasound guidance for PICC line placement. IMPRESSION: Ultrasound guidance for PICC line placement. RPTAT: AA .Shen Torres MD, MD Date Time Electronically viewed and signed by .Shen Torres MD, on 05/26/2016 11:49 .S/
[2016-05-26] MEDS ORDERED: SOD CHLORIDE 0.9% 100 ML ONE (12:07)
--- NOTE | 2016-05-26 12:52 | PN ---
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 Sepsis as evidenced by fever, tachycardia, secondary to left lower extremity cellulitis. Blood cx diphteroids and Strep in blood 2. Recurrent left lower extremity cellulitis/wound. 3. Diabetes with hyperglycemia. 4. Hypertension. 5. 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 Hypothyroidism. 7. Dyslipidemia. Blood Cx grew bacteroids, and Strep, vanocmycin stopped today, currently on IV abx meropenem, will have to wait until final blood cx results and sensitivity to narrow down abx plan PICC line placement SNF placement Subjective 24 Hr Interval Summary Free Text/Dictation c/o left foot pain with dressing change Exam/Review of Systems Vital Signs Vitals Vital Signs Date Time Temp Pulse Resp B/P Pulse Ox O2 Delivery O2 Flow Rate FiO2 05/26/16 07:38 98.1 74 18 129/60 98 Intake and Output 05/25/16 05/25/16 05/26/16 15:00 23:00 07:00 Intake Total 990 ml 400 ml Balance 990 ml 400 ml Exam GENERAL: Well-nourished, well-developed, elderly woman who is alert, in no distress. HEENT: Head atraumatic, normocephalic. Sclerae anicteric. Buccal mucosa pink. NECK: Supple, trachea midline. CHEST: Rise symmetrical. Breath sounds diminished to bases. HEART: S1, S2. ABDOMEN: Soft, bowel tones present. EXTREMITIES: Left lower extremity dressing intact Results Result Diagram: 05/25/16 0535 05/25/16 0535 Results 24 hrs Laboratory Tests Test 05/25/16 17:23 05/25/16 21:56 05/26/16 08:06 05/26/16 12:23 Bedside Glucose 124 127 88 98 Medications Medications Current Medications Morphine Sulfate (morphine) 2 mg Q4H PRN IV pain Last administered on 05/24/16 22:22; Admin Dose 2 MG; Start 05/20/16 at 22:00 Acetaminophen (Tylenol Tab) 650 mg Q4H PRN PO PAIN AND OR ELEVATED TEMP Last administered on 05/24/16 06:49; Admin Dose 650 MG; Start 05/20/16 at 22:00 Ondansetron HCl (Zofran Inj) 4 mg Q6H PRN IV NAUSEA AND/OR VOMITING; Start 05/20 at 22:00 Insulin Glargine (Lantus) 20 unit DAILY@20 SC Last administered on 05/25/16 22: 03; Admin Dose 20 UNIT; Start 05/21/16 at 20:00 Diagnostic Test (Pha) (Accu-Chek) 1 ea 02 XX Last administered on 05/21/16 02: 45; Admin Dose 1 EA; Start 05/21/16 at 02:00 Miscellaneous Information 1 ea NOTE XX ; Start 05/20/16 at 22:30 Glucose (Glutose) 15 gm Q15M PRN PO DECREASED GLUCOSE; Start 05/20/16 at 22:30 Glucose (Glutose) 22.5 gm Q15M PRN PO DECREASED GLUCOSE; Start 05/20/16 at 22:30 Dextrose (D50w Syringe) 25 ml Q15M PRN IV DECREASED GLUCOSE; Start 05/20/16 at 22:30 Dextrose (D50w Syringe) 50 ml Q15M PRN IV DECREASED GLUCOSE; Start 05/20/16 at 22:30 Glucagon (Glucagen) 1 mg Q15M PRN IM DECREASED GLUCOSE; Start 05/20/16 at 22:30 Glucose (Glutose) 15 gm Q15M PRN BUCCAL DECREASED GLUCOSE; Start 05/20/16 at 22: 30 Aspirin (Halfprin) 81 mg DAILY PO Last administered on 05/26/16 08:07; Admin Dose 81 MG; Start 05/21/16 at 09:00 Atorvastatin Calcium (Lipitor) 40 mg DAILY PO Last administered on 05/26/16 08: 07; Admin Dose 40 MG; Start 05/21/16 at 09:00 Azathioprine (Imuran) 50 mg DAILY PO Last administered on 05/26/16 08:07; Admin Dose 50 MG; Start 05/21/16 at 09:00 Bacitracin (Bacitracin 0.5%/ Zinc Oint) 2 applic BID TOP Last administered on 08:08; Admin Dose 2 APPLIC; Start 05/21/16 at 09:00 Ferrous Sulfate (Ferrous Sulfate (Ec)) 325 mg BID PO Last administered on 08:07; Admin Dose 325 MG; Start 05/21/16 at 09:00 Fluticasone Propionate (Flonase 0.05% Nasal) 1 spray BID NASAL Last administered on 05/26/16 08:08; Admin Dose 1 SPRAY; Start 05/21/16 at 09:00 Hydrocortisone (Hydrocortisone 2.5% Cr) 1 applic BID TOP Last administered on 08:08; Admin Dose 1 APPLIC; Start 05/21/16 at 09:00 Nortriptyline HCl (Aventyl) 10 mg HS PO Last administered on 05/25/16 21:56; Admin Dose 10 MG; Start 05/21/16 at 21:00 Amlodipine Besylate (Norvasc) 2.5 mg QAM PO Last administered on 05/26/16 08:08 ; Admin Dose 2.5 MG; Start 05/22/16 at 09:00 Losartan Potassium (Cozaar) 25 mg BID PO Last administered on 05/26/16 08:07; Admin Dose 25 MG; Start 05/21/16 at 21:00 Acetaminophen/ Hydrocodone Bitart ([place] (10/325)) 1 tab Q4H PRN PO PAIN Last administered on 05/26/16 12:24; Admin Dose 1 TAB; Start 05/21/16 at 14:00 Docusate Sodium (Colace) 100 mg DAILY PO Last administered on 05/26/16 08:07; Admin Dose 100 MG; Start 05/22/16 at 15:00 Polyethylene Glycol (Miralax) 17 gm DAILY PRN PO CONSTIPATION; Start 05/22/16 at 15:00 Senna (Senokot) 1 tab QPM PO Last administered on 05/25/16 21:56; Admin Dose 1 TAB; Start 05/22/16 at 21:00 Magnesium Oxide (Mag-Ox 400) 400 mg BID PO Last administered on 05/26/16 08:07 ; Admin Dose 400 MG; Start 05/23/16 at 15:00 Clindamycin Phosphate (Clindamycin 1% Gel) 1 applic BID TOP Last administered on 05/26/16 08:08; Admin Dose 1 APPLIC; Start 05/23/16 at 21:00 Heparin Sodium (Porcine) 5000 unit 5,000 unit BID SC Last administered on 08:17; Admin Dose 5,000 UNIT; Start 05/24/16 at 21:00 Ceftriaxone Sodium (Rocephin) 50 ml @ 100 mls/hr Q24H IVPB ; Start 05/25/16 at 15:30 Metronidazole (Flagyl) 500 mg Q8 PO Last administered on 05/26/16 06:05; Admin Dose 500 MG; Start 05/25/16 at 22:00 IV Flush (NS 10 ml) 10 ml PRN PRN IV IV PROTOCOL; Start 05/26/16 at 12:30 ZAK OTERO MD May 26, 2016 12:52
--- NOTE | 2016-05-26 13:05 | PDOCDIS ---
Discharge Instructions CONDITION Patient Condition: Good HOME CARE INSTRUCTIONS: Special Diet: 1800 ADA ACTIVITY: Activity Restrictions: Slowly Increase Activity Rest between Activity Avoid heavy lifting Avoid Heavy Housework FOLLOW UP/APPOINTMENTS Appointments follow up with physician at SNF. Follow up with ( podiatry) as outpatient in 2-3 week after discharge. Follow up with ID as outpatient in 2-3 week after discharge ZAK OTERO MD May 26, 2016 13:05
[2016-05-26] MEDS: CEFTRIAXONE 2 GM/50 ML (PMX) 50 ML IVPB SCH (14:40)
--- NOTE | 2016-05-26 15:20 | CONS ---
Date/Time of Note Date/Time of Note DATE: 05/26/16 TIME: 15:18 Assessment/Plan Assessment/Plan Chief Complaint/Hosp Course SUBJECTIVE: The patient is alert, lying comfortably in bed, afebrile. MICROBIOLOGY: Blood culture grew Strep agalactiae and Bacteroides fragilis. Wound culture growing Strep agalactiae and group D, not enterococcus, susceptible essentially to all antibiotics except ciprofloxacin. ANTIMICROBIALS: Flagyl, Rocephin PHYSICAL EXAMINATION: GENERAL: Well-developed, elderly woman who is alert, in no distress. HEENT: Head atraumatic, normocephalic. Sclerae anicteric. Buccal mucosa dry. NECK: Supple, trachea midline. CHEST: Rise symmetrical. Breath sounds clear. HEART: S1, S2. ABDOMEN: Soft, bowel sounds present. EXTREMITIES: Left lower extremity dressing clean, dry and intact. ASSESSMENT: 1. Polymicrobial bacteremia secondary to #2. 2. Left lower extremity cellulitis with acute on chronic wound. 3. Diabetes. 4. Hypertension. PLAN: The patient remains stable. PICC placed, continue abx for 2 more weeks, consider PT as she is not being able to walk, pt refusing SNF DW Dr Escudero Problems: Consultation Date/Type/Reason Admit Date/Time May 20, 2016 at 19:46 Initial Consult Date Type of Consultation: ID Exam/Review of Systems Vital Signs Vitals Vital Signs Date Time Temp Pulse Resp B/P Pulse Ox O2 Delivery O2 Flow Rate FiO2 05/26/16 07:38 98.1 74 18 129/60 98 Intake and Output 05/25/16 05/25/16 05/26/16 15:00 23:00 07:00 Intake Total 990 ml 400 ml Balance 990 ml 400 ml Results Result Diagram: 05/25/16 0535 05/25/16 0535 Results 24 hrs Laboratory Tests Test 05/25/16 17:23 05/25/16 21:56 05/26/16 08:06 05/26/16 12:23 Bedside Glucose 124 127 88 98 Medications Medications Current Medications Morphine Sulfate (morphine) 2 mg Q4H PRN IV pain Last administered on 05/24/16 22:22; Admin Dose 2 MG; Start 05/20/16 at 22:00 Acetaminophen (Tylenol Tab) 650 mg Q4H PRN PO PAIN AND OR ELEVATED TEMP Last administered on 05/24/16 06:49; Admin Dose 650 MG; Start 05/20/16 at 22:00 Ondansetron HCl (Zofran Inj) 4 mg Q6H PRN IV NAUSEA AND/OR VOMITING; Start 05/20 at 22:00 Insulin Glargine (Lantus) 20 unit DAILY@20 SC Last administered on 05/25/16 22: 03; Admin Dose 20 UNIT; Start 05/21/16 at 20:00 Diagnostic Test (Pha) (Accu-Chek) 1 ea 02 XX Last administered on 05/21/16 02: 45; Admin Dose 1 EA; Start 05/21/16 at 02:00 Miscellaneous Information 1 ea NOTE XX ; Start 05/20/16 at 22:30 Glucose (Glutose) 15 gm Q15M PRN PO DECREASED GLUCOSE; Start 05/20/16 at 22:30 Glucose (Glutose) 22.5 gm Q15M PRN PO DECREASED GLUCOSE; Start 05/20/16 at 22:30 Dextrose (D50w Syringe) 25 ml Q15M PRN IV DECREASED GLUCOSE; Start 05/20/16 at 22:30 Dextrose (D50w Syringe) 50 ml Q15M PRN IV DECREASED GLUCOSE; Start 05/20/16 at 22:30 Glucagon (Glucagen) 1 mg Q15M PRN IM DECREASED GLUCOSE; Start 05/20/16 at 22:30 Glucose (Glutose) 15 gm Q15M PRN BUCCAL DECREASED GLUCOSE; Start 05/20/16 at 22: 30 Aspirin (Halfprin) 81 mg DAILY PO Last administered on 05/26/16 08:07; Admin Dose 81 MG; Start 05/21/16 at 09:00 Atorvastatin Calcium (Lipitor) 40 mg DAILY PO Last administered on 05/26/16 08: 07; Admin Dose 40 MG; Start 05/21/16 at 09:00 Azathioprine (Imuran) 50 mg DAILY PO Last administered on 05/26/16 08:07; Admin Dose 50 MG; Start 05/21/16 at 09:00 Bacitracin (Bacitracin 0.5%/ Zinc Oint) 2 applic BID TOP Last administered on 08:08; Admin Dose 2 APPLIC; Start 05/21/16 at 09:00 Ferrous Sulfate (Ferrous Sulfate (Ec)) 325 mg BID PO Last administered on 08:07; Admin Dose 325 MG; Start 05/21/16 at 09:00 Fluticasone Propionate (Flonase 0.05% Nasal) 1 spray BID NASAL Last administered on 05/26/16 08:08; Admin Dose 1 SPRAY; Start 05/21/16 at 09:00 Hydrocortisone (Hydrocortisone 2.5% Cr) 1 applic BID TOP Last administered on 08:08; Admin Dose 1 APPLIC; Start 05/21/16 at 09:00 Nortriptyline HCl (Aventyl) 10 mg HS PO Last administered on 05/25/16 21:56; Admin Dose 10 MG; Start 05/21/16 at 21:00 Amlodipine Besylate (Norvasc) 2.5 mg QAM PO Last administered on 05/26/16 08:08 ; Admin Dose 2.5 MG; Start 05/22/16 at 09:00 Losartan Potassium (Cozaar) 25 mg BID PO Last administered on 05/26/16 08:07; Admin Dose 25 MG; Start 05/21/16 at 21:00 Acetaminophen/ Hydrocodone Bitart ([place] (10/325)) 1 tab Q4H PRN PO PAIN Last administered on 05/26/16 12:24; Admin Dose 1 TAB; Start 05/21/16 at 14:00 Docusate Sodium (Colace) 100 mg DAILY PO Last administered on 05/26/16 08:07; Admin Dose 100 MG; Start 05/22/16 at 15:00 Polyethylene Glycol (Miralax) 17 gm DAILY PRN PO CONSTIPATION; Start 05/22/16 at 15:00 Senna (Senokot) 1 tab QPM PO Last administered on 05/25/16 21:56; Admin Dose 1 TAB; Start 05/22/16 at 21:00 Magnesium Oxide (Mag-Ox 400) 400 mg BID PO Last administered on 05/26/16 08:07 ; Admin Dose 400 MG; Start 05/23/16 at 15:00 Clindamycin Phosphate (Clindamycin 1% Gel) 1 applic BID TOP Last administered on 05/26/16 08:08; Admin Dose 1 APPLIC; Start 05/23/16 at 21:00 Heparin Sodium (Porcine) 5000 unit 5,000 unit BID SC Last administered on 08:17; Admin Dose 5,000 UNIT; Start 05/24/16 at 21:00 Ceftriaxone Sodium (Rocephin) 50 ml @ 100 mls/hr Q24H IVPB Last administered on 05/26/16 14:40; Admin Dose 100 MLS/HR; Start 05/25/16 at 15:30 Metronidazole (Flagyl) 500 mg Q8 PO Last administered on 05/26/16 14:39; Admin Dose 500 MG; Start 05/25/16 at 22:00 IV Flush (NS 10 ml) 10 ml PRN PRN IV IV PROTOCOL; Start 05/26/16 at 12:[address] NP May 26, 2016 15:20
--- NOTE | 2016-05-26 15:28 | RADRPT ---
PROCEDURE: XR Chest. CLINICAL INDICATION: Check PICC line position. TECHNIQUE: Single frontal view. COMPARISON: 05/20/2016. FINDINGS: There is a left arm PICC line with the tip in the lower superior vena cava. The lungs are clear. The heart is mildly enlarged. There is no pleural effusion. There is no pneumothorax. IMPRESSION: 1. Satisfactory position of left arm PICC line. 2. Mild cardiomegaly. 2. Otherwise normal chest x-ray. RPTAT: QQ .Jose Juan Brady MD, MD Date Time Electronically viewed and signed by .Jose Juan Brady MD, MD on 05/26/2016 15:27 .R/
[2016-05-26 20:19] VITALS: BP 119/56; RESP 20
[2016-05-26] MEDS: SENNA TAB PO SCH (21:01)
[2016-05-26] MEDS: NORTRIPTYLINE 10 MG CAP PO SCH (21:04)
[2016-05-26] MEDS: INSULIN GLARGINE [LANtus] 3 ML PEN SC SCH (21:09)
[2016-05-27] MEDS: ACCU-CHEK XX SCH (02:00)
[2016-05-27] MEDS: metroNIDAZOLE 500 MG TAB PO SCH (05:40)
[2016-05-27] MEDS: LEVOTHYROXINE 88 MCG TAB PO SCH (07:00)
[2016-05-27 07:29] VITALS: BP 120/58; RESP 18
[2016-05-27] MEDS: INSULIN ASPART [NOVOLOG] 3 ML PEN SC SCH ×7 (07:43→21:00)
[2016-05-27] MEDS: metFORMIN 500 MG TAB PO SCH ×2 (08:06→17:46)
[2016-05-27] MEDS: FERROUS SULFATE (EC) 325 MG TAB PO SCH ×2 (08:56→21:20)
[2016-05-27] MEDS: AZATHIOPRINE 50 MG TAB PO SCH (08:56)
[2016-05-27] MEDS: MAGNESIUM OXIDE 400 MG TAB PO SCH ×2 (08:56→21:20)
[2016-05-27] MEDS: DOCUSATE SODIUM 100 MG CAP PO SCH (08:56)
[2016-05-27] MEDS: ATORVASTATIN 40 MG TAB PO SCH (08:56)
[2016-05-27] MEDS: ASPIRIN (EC) 81 MG TAB PO SCH (08:56)
[2016-05-27] MEDS: AMLODIPINE 2.5 MG TAB PO SCH (08:57)
[2016-05-27] MEDS: LOSARTAN 25 MG TAB PO SCH ×2 (08:57→21:21)
[2016-05-27] MEDS: BACITRACIN 0.5%/ZINC 28.35 GM OINT TOP SCH (09:00)
[2016-05-27] MEDS: FLUTICASONE 0.05% 16 GM NAS SPRAY NASAL SCH ×3 (09:00→21:23)
[2016-05-27] MEDS: HEPARIN 5,000 UNIT/0.5 ML VIAL SC SCH ×2 (09:04→21:19)
[2016-05-27] MEDS: SILVER SULFADIAZINE 1% 50 GM CR TOP SCH (10:11)
--- NOTE | 2016-05-27 10:23 | PN ---
Date/Time of Note Date/Time of Note DATE: 05/27/16 TIME: 10:16 Assessment/Plan VTE Prophylaxis VTE Prophylaxis Intervention: ambulation Lines/Catheters IV Catheter Type (from Nrsg): PICC Line Central line still needed: Yes Urinary Cath still in place: No Assessment/Plan Chief Complaint/Hosp Course Assessment 1. Sepsis as evidenced by fever, tachycardia, secondary to left lower extremity cellulitis. Blood cx diphteroids and Strep in blood status post PICC line placement 2. Recurrent left lower extremity cellulitis/wound. 3. Diabetes with hyperglycemia. 4. Hypertension. 5. 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 Hypothyroidism. 7. Dyslipidemia. Plan 1. Antibiotic recommendations prior to discharge 2. Wound care recommendations prior to discharge 3. According to nursing staff patient has declined to long term facility and wants to go home 4. Anticipate discharge tomorrow Problems: Subjective 24 Hr Interval Summary Free Text/Dictation Patient comfortable this morning no new events Exam/Review of Systems Vital Signs Vitals Vital Signs Date Time Temp Pulse Resp B/P Pulse Ox O2 Delivery O2 Flow Rate FiO2 05/27/16 07:29 99.2 81 18 120/58 98 Intake and Output 05/26/16 05/26/16 05/27/16 15:00 23:00 07:00 Intake Total 2370 ml 220 ml Output Total 1400 ml Balance 970 ml 220 ml Exam GENERAL: Well-nourished well-developed lady comfortable at rest no acute distress VITAL SIGNS: per chart NECK: Supple. No JVD or lymphadenopathy. CARDIAC EXAM: S1, S2. No added sounds or murmurs. CHEST: clear bilaterally, No added sounds, rales or wheezes ABDOMEN: Soft, nontender. No guarding or rebound. EXTREMITIES: No cyanosis, clubbing or edema. NEUROLOGIC: Generalized weakness. No focal deficits. Results Result Diagram: 05/25/16 0535 05/25/16 0535 Results 24 hrs Laboratory Tests Test 05/26/16 12:23 05/26/16 17:18 05/26/16 20:57 05/27/16 01:59 Bedside Glucose 98 125 222 H 86 Test 05/27/16 07:42 Bedside Glucose 81 Medications Medications Current Medications Morphine Sulfate (morphine) 2 mg Q4H PRN IV pain Last administered on 05/24/16t 22:22; Admin Dose 2 MG; Start 05/20/16 at 22:00 Acetaminophen (Tylenol Tab) 650 mg Q4H PRN PO PAIN AND OR ELEVATED TEMP Last administered on 05/24/16 06:49; Admin Dose 650 MG; Start 05/20/16 at 22:00 Ondansetron HCl (Zofran Inj) 4 mg Q6H PRN IV NAUSEA AND/OR VOMITING; Start 05/20 at 22:00 Insulin Glargine (Lantus) 20 unit DAILY@20 SC Last administered on 05/26/16 21: 09; Admin Dose 20 UNIT; Start 05/21/16 at 20:00 Diagnostic Test (Pha) (Accu-Chek) 1 ea 02 XX Last administered on 05/21/16 02: 45; Admin Dose 1 EA; Start 05/21/16 at 02:00 Miscellaneous Information 1 ea NOTE XX ; Start 05/20/16 at 22:30 Glucose (Glutose) 15 gm Q15M PRN PO DECREASED GLUCOSE; Start 05/20/16 at 22:30 Glucose (Glutose) 22.5 gm Q15M PRN PO DECREASED GLUCOSE; Start 05/20/16 at 22:30 Dextrose (D50w Syringe) 25 ml Q15M PRN IV DECREASED GLUCOSE; Start 05/20/16 at 22:30 Dextrose (D50w Syringe) 50 ml Q15M PRN IV DECREASED GLUCOSE; Start 05/20/16 at 22:30 Glucagon (Glucagen) 1 mg Q15M PRN IM DECREASED GLUCOSE; Start 05/20/16 at 22:30 Glucose (Glutose) 15 gm Q15M PRN BUCCAL DECREASED GLUCOSE; Start 05/20/16 at 22: 30 Aspirin (Halfprin) 81 mg DAILY PO Last administered on 05/27/16 08:56; Admin Dose 81 MG; Start 05/21/16 at 09:00 Atorvastatin Calcium (Lipitor) 40 mg DAILY PO Last administered on 05/27/16 08: 56; Admin Dose 40 MG; Start 05/21/16 at 09:00 Azathioprine (Imuran) 50 mg DAILY PO Last administered on 05/27/16 08:56; Admin Dose 50 MG; Start 05/21/16 at 09:00 Ferrous Sulfate (Ferrous Sulfate (Ec)) 325 mg BID PO Last administered on 08:56; Admin Dose 325 MG; Start 05/21/16 at 09:00 Fluticasone Propionate (Flonase 0.05% Nasal) 1 spray BID NASAL Last administered on 05/27/16 10:11; Admin Dose 1 SPRAY; Start 05/21/16 at 09:00 Nortriptyline HCl (Aventyl) 10 mg HS PO Last administered on 05/26/16 21:04; Admin Dose 10 MG; Start 05/21/16 at 21:00 Amlodipine Besylate (Norvasc) 2.5 mg QAM PO Last administered on 05/27/16 08:57 ; Admin Dose 2.5 MG; Start 05/22/16 at 09:00 Losartan Potassium (Cozaar) 25 mg BID PO Last administered on 05/27/16 08:57; Admin Dose 25 MG; Start 05/21/16 at 21:00 Acetaminophen/ Hydrocodone Bitart ([place] (10/325)) 1 tab Q4H PRN PO PAIN Last administered on 05/26/16 12:24; Admin Dose 1 TAB; Start 05/21/16 at 14:00 Docusate Sodium (Colace) 100 mg DAILY PO Last administered on 05/27/16 08:56; Admin Dose 100 MG; Start 05/22/16 at 15:00 Polyethylene Glycol (Miralax) 17 gm DAILY PRN PO CONSTIPATION; Start 05/22/16 at 15:00 Senna (Senokot) 1 tab QPM PO Last administered on 05/26/16 21:01; Admin Dose 1 TAB; Start 05/22/16 at 21:00 Magnesium Oxide (Mag-Ox 400) 400 mg BID PO Last administered on 05/27/16 08:56 ; Admin Dose 400 MG; Start 05/23/16 at 15:00 Heparin Sodium (Porcine) 5000 unit 5,000 unit BID SC Last administered on 09:04; Admin Dose 5,000 UNIT; Start 05/24/16 at 21:00 Ceftriaxone Sodium (Rocephin) 50 ml @ 100 mls/hr Q24H IVPB Last administered on 05/26/16 14:40; Admin Dose 100 MLS/HR; Start 05/25/16 at 15:30 Metronidazole (Flagyl) 500 mg Q8 PO Last administered on 05/27/16 05:40; Admin Dose 500 MG; Start 05/25/16 at 22:00 IV Flush (NS 10 ml) 10 ml PRN PRN IV IV PROTOCOL; Start 05/26/16 at 12:30 Silver Sulfadiazine (Thermazene 1% 50 Gm) 1 applic DAILY TOP Last administered on 05/27/16 10:11; Admin Dose 1 APPLIC; Start 05/27/16 at 10:00 [facility] May 27, 2016 10:23
--- NOTE | 2016-05-27 10:30 | CONS ---
DATE OF ADMISSION: 05/20/2016 DATE OF CONSULTATION: 05/27/2016 SUBJECTIVE FINDINGS: The patient being followed for bilateral lower extremity cellulitis. The jamal ent had cultures revealing strep agalactia group B and strep group D nonenterococcus. The patient re lates decreased pain since admission. The patient tolerating Rocephin and Flagyl. OBJECTIVE FINDINGS VITAL SIGNS: Temperature 99.2, pulse is 81, respiratory 18, blood pressure 120/58, pulse oximetry i s 98%. GENERAL: The patient alert, in no distress, no pain. HEENT: Head normocephalic, atraumatic. Trachea is midline. EXTREMITIES: The patient with decreased cellulitis to the left lower extremity. The patient has a small wound with seropurulent drainage. There is decreased pain to the area. No pain with flexion and extension of her knee or ankle. The patient has a small ulceration to the right anterior ankle, approximately 2 mm with a sanguineous exudate. Mild edema. Mild erythema. LABORATORIES: WBC 7.3, hemoglobin 10, hematocrit 32.7, platelets 266. Cultures 05/26/2016 strep ag alactia group B and strep group D nonenterococcus. On 05/20/2016 the patient showed resistance to c lindamycin strep group D. ASSESSMENT: 1. Left lower extremity abscess with cellulitis. 2. Streptococcus infection. 3. Ulceration right anterior ankle. 4. Edema. PLAN: The patient showing no significant improvement. Skin care, wound care performed. Ulceration s irrigated with Betadine. Reviewed cultures. The patient showing some evidence of clindamycin resi stance. Will switch topical from clindamycin to Silvadene and leukocytosis is resolved. Recommend discharge planning: The patient will need outpatient followup. Currently recommended additional 2 weeks coverage with IV antibiotics. Recommend follow up as an outpatient. Dictated By: CHAPIS CHIANG/TORREY Conf#: [id number] DID#: [id number]
--- NOTE | 2016-05-27 11:16 | CONS ---
Date/Time of Note Date/Time of Note DATE: 05/27/16 TIME: 10:35 Assessment/Plan Assessment/Plan Chief Complaint/Hosp Course ID PROGRESS NOTE TOTAL ABX DAY #8 => Flagyl, Rocephin s/p Vanco IV + Zosyn * DC PLANNING IN PROCESS: Patient prefers DC home w/HH wound & IV ABX * VSS, NAD, chart reviewed * MICROBIOLOGY: Blood culture grew Strep agalactiae and Bacteroides fragilis. Wound culture growing Strep agalactiae and group D, not enterococcus, susceptible essentially to all antibiotics except ciprofloxacin. * MRI: IMPRESSION: * 1. Anterior soft tissue swelling and multifocal dystrophic calcifications over the left tibia as above, most prominent proximally. The soft tissue swelling may represent cellulitis and the calcifications are nonspecific but could be related to previous trauma or inflammatory process. * 2. Nonspecific edema within the proximal tibialis anterior muscle belly, query myositis. * 3. No evidence of acute fracture or osteomyelitis. * 4. No evidence of drainable fluid collection. PHYSICAL EXAMINATION: GENERAL: Well-developed, elderly woman who is alert, in no distress. HEENT: Unremarkable NECK: Supple, trachea midline. CHEST: Rise symmetrical. Breath sounds clear. HEART: S1, S2. ABDOMEN: Soft, bowel sounds present. EXTREMITIES: Left lower extremity dressing clean, dry and intact. ASSESSMENT: 1. Polymicrobial bacteremia 05/20/16 secondary to #2. Organism 1 STREP AGALACTIAE - (GROUP B) Organism 2 BACTEROIDES FRAGILIS 2. Left lower extremity cellulitis, possible myositis, with acute on chronic wound (-)osteomyelitis per MRI => WOUND CX 05/20/16 & 05/23/16 * WOUND CULTURE Final Organism 1 STREP AGALACTIAE - (GROUP B) QUANTITY 1+ Organism 2 STREP GRP D NOT ENTEROCOCCUS QUANTITY 1+ 3. Diabetes. 4. Hypertension. TOTAL ABX DAY #8 => Flagyl, Rocephin s/p Vanco IV + Zosyn ID PLAN: Patient will complete IV ABX DAY #8 today -> repeat Blood Cx are NEGATIVE. * => She has PICC in place, MRI w/concern deep tissue infection possible myositis * => RECOMMEND: DC home on ERTAPENEM 1 GM IVPB to complete 14 day course -> until last day 06/02/16 * CASE MANAGEMENT IV ABX ORDER UPDATED as requested by Jaden Jacobs NP & Dr. Culp. * => Wound care per primary . Problems: Consultation Date/Type/Reason Admit Date/Time May 20, 2016 at 19:46 Initial Consult Date Type of Consultation: ID Exam/Review of Systems Vital Signs Vitals Vital Signs Date Time Temp Pulse Resp B/P Pulse Ox O2 Delivery O2 Flow Rate FiO2 05/27/16 07:29 99.2 81 18 120/58 98 Intake and Output 05/26/16 05/26/16 05/27/16 15:00 23:00 07:00 Intake Total 2370 ml 220 ml Output Total 1400 ml Balance 970 ml 220 ml Results Result Diagram: 05/25/16 0535 05/25/16 0535 Results 24 hrs Laboratory Tests Test 05/26/16 12:23 05/26/16 17:18 05/26/16 20:57 05/27/16 01:59 Bedside Glucose 98 125 222 H 86 Test 05/27/16 07:42 Bedside Glucose 81 Medications Medications Current Medications Morphine Sulfate (morphine) 2 mg Q4H PRN IV pain Last administered on 05/24/16 22:22; Admin Dose 2 MG; Start 05/20/16 at 22:00 Acetaminophen (Tylenol Tab) 650 mg Q4H PRN PO PAIN AND OR ELEVATED TEMP Last administered on 05/24/16 06:49; Admin Dose 650 MG; Start 05/20/16 at 22:00 Ondansetron HCl (Zofran Inj) 4 mg Q6H PRN IV NAUSEA AND/OR VOMITING; Start 05/20 at 22:00 Insulin Glargine (Lantus) 20 unit DAILY@20 SC Last administered on 05/26/16 21: 09; Admin Dose 20 UNIT; Start 05/21/16 at 20:00 Diagnostic Test (Pha) (Accu-Chek) 1 ea 02 XX Last administered on 05/21/16 02: 45; Admin Dose 1 EA; Start 05/21/16 at 02:00 Miscellaneous Information 1 ea NOTE XX ; Start 05/20/16 at 22:30 Glucose (Glutose) 15 gm Q15M PRN PO DECREASED GLUCOSE; Start 05/20/16 at 22:30 Glucose (Glutose) 22.5 gm Q15M PRN PO DECREASED GLUCOSE; Start 05/20/16 at 22:30 Dextrose (D50w Syringe) 25 ml Q15M PRN IV DECREASED GLUCOSE; Start 05/20/16 at 22:30 Dextrose (D50w Syringe) 50 ml Q15M PRN IV DECREASED GLUCOSE; Start 05/20/16 at 22:30 Glucagon (Glucagen) 1 mg Q15M PRN IM DECREASED GLUCOSE; Start 05/20/16 at 22:30 Glucose (Glutose) 15 gm Q15M PRN BUCCAL DECREASED GLUCOSE; Start 05/20/16 at 22: 30 Aspirin (Halfprin) 81 mg DAILY PO Last administered on 05/27/16 08:56; Admin Dose 81 MG; Start 05/21/16 at 09:00 Atorvastatin Calcium (Lipitor) 40 mg DAILY PO Last administered on 05/27/16 08: 56; Admin Dose 40 MG; Start 05/21/16 at 09:00 Azathioprine (Imuran) 50 mg DAILY PO Last administered on 05/27/16 08:56; Admin Dose 50 MG; Start 05/21/16 at 09:00 Ferrous Sulfate (Ferrous Sulfate (Ec)) 325 mg BID PO Last administered on 08:56; Admin Dose 325 MG; Start 05/21/16 at 09:00 Fluticasone Propionate (Flonase 0.05% Nasal) 1 spray BID NASAL Last administered on 05/27/16 10:11; Admin Dose 1 SPRAY; Start 05/21/16 at 09:00 Nortriptyline HCl (Aventyl) 10 mg HS PO Last administered on 05/26/16 21:04; Admin Dose 10 MG; Start 05/21/16 at 21:00 Amlodipine Besylate (Norvasc) 2.5 mg QAM PO Last administered on 05/27/16 08:57 ; Admin Dose 2.5 MG; Start 05/22/16 at 09:00 Losartan Potassium (Cozaar) 25 mg BID PO Last administered on 05/27/16 08:57; Admin Dose 25 MG; Start 05/21/16 at 21:00 Acetaminophen/ Hydrocodone Bitart ([place] (10/325)) 1 tab Q4H PRN PO PAIN Last administered on 05/26/16 12:24; Admin Dose 1 TAB; Start 05/21/16 at 14:00 Docusate Sodium (Colace) 100 mg DAILY PO Last administered on 05/27/16 08:56; Admin Dose 100 MG; Start 05/22/16 at 15:00 Polyethylene Glycol (Miralax) 17 gm DAILY PRN PO CONSTIPATION; Start 05/22/16 at 15:00 Senna (Senokot) 1 tab QPM PO Last administered on 05/26/16 21:01; Admin Dose 1 TAB; Start 05/22/16 at 21:00 Magnesium Oxide (Mag-Ox 400) 400 mg BID PO Last administered on 05/27/16 08:56 ; Admin Dose 400 MG; Start 05/23/16 at 15:00 Heparin Sodium (Porcine) 5000 unit 5,000 unit BID SC Last administered on 09:04; Admin Dose 5,000 UNIT; Start 05/24/16 at 21:00 Ceftriaxone Sodium (Rocephin) 50 ml @ 100 mls/hr Q24H IVPB Last administered on 05/26/16 14:40; Admin Dose 100 MLS/HR; Start 05/25/16 at 15:30 Metronidazole (Flagyl) 500 mg Q8 PO Last administered on 05/27/16 05:40; Admin Dose 500 MG; Start 05/25/16 at 22:00 IV Flush (NS 10 ml) 10 ml PRN PRN IV IV PROTOCOL; Start 05/26/16 at 12:30 Silver Sulfadiazine (Thermazene 1% 50 Gm) 1 applic DAILY TOP Last administered on 05/27/16 10:11; Admin Dose 1 APPLIC; Start 05/27/16 at 10:00 KIMBERLY BARBA NP May 27, 2016 10:45
[2016-05-27] MEDS: ERTAPENEM SODIUM 1 GM in SOD CHLORIDE 0.9% 100 ML IVPB SCH (13:22)
[2016-05-27 19:24] VITALS: BP 135/64; RESP 16
[2016-05-27] MEDS: INSULIN GLARGINE [LANtus] 3 ML PEN SC SCH (21:19)
[2016-05-27] MEDS: SENNA TAB PO SCH (21:20)
[2016-05-27] MEDS: NORTRIPTYLINE 10 MG CAP PO SCH (21:20)
[2016-05-27] MEDS: HYDROCODONE/APAP (10/325) TAB PO PRN (21:21)
[2016-05-28] MEDS: ACCU-CHEK XX SCH (02:00)
[2016-05-28] MEDS: LEVOTHYROXINE 88 MCG TAB PO SCH (05:53)
[2016-05-28 07:55] VITALS: BP 125/59; RESP 18
[2016-05-28] MEDS: metFORMIN 500 MG TAB PO SCH ×2 (08:13→17:39)
[2016-05-28] MEDS: INSULIN ASPART [NOVOLOG] 3 ML PEN SC SCH ×7 (08:15→21:00)
[2016-05-28] MEDS: DOCUSATE SODIUM 100 MG CAP PO SCH (09:23)
[2016-05-28] MEDS: FERROUS SULFATE (EC) 325 MG TAB PO SCH ×2 (09:23→21:08)
[2016-05-28] MEDS: AZATHIOPRINE 50 MG TAB PO SCH (09:23)
[2016-05-28] MEDS: LOSARTAN 25 MG TAB PO SCH ×2 (09:23→21:09)
[2016-05-28] MEDS: FLUTICASONE 0.05% 16 GM NAS SPRAY NASAL SCH ×2 (09:24→21:02)
[2016-05-28] MEDS: AMLODIPINE 2.5 MG TAB PO SCH (09:24)
[2016-05-28] MEDS: MAGNESIUM OXIDE 400 MG TAB PO SCH ×2 (09:24→21:08)
[2016-05-28] MEDS: ASPIRIN (EC) 81 MG TAB PO SCH (09:24)
[2016-05-28] MEDS: ATORVASTATIN 40 MG TAB PO SCH (09:24)
[2016-05-28] MEDS: SILVER SULFADIAZINE 1% 50 GM CR TOP SCH (09:25)
[2016-05-28] MEDS: HEPARIN 5,000 UNIT/0.5 ML VIAL SC SCH ×2 (09:33→21:15)
[2016-05-28] MEDS: ERTAPENEM SODIUM 1 GM in SOD CHLORIDE 0.9% 100 ML IVPB SCH (12:21)
--- NOTE | 2016-05-28 16:23 | CONS ---
Date/Time of Note Date/Time of Note DATE: 05/28/16 TIME: 16:14 Assessment/Plan Assessment/Plan Chief Complaint/Hosp Course ID PROGRESS NOTE TOTAL ABX DAY #8 => Ertapenem #2 s/p Flagyl, Rocephin s/p Vanco IV + Zosyn * [facility] note reviewed -- wound irrigated with recommendation to DC with ADDITIONAL 2 weeks IV ABX * DC PLANNING IN PROCESS: Patient prefers DC home w/HH wound & IV ABX * VSS, NAD, chart reviewed * MICROBIOLOGY: Blood culture grew Strep agalactiae and Bacteroides fragilis. Wound culture growing Strep agalactiae and group D, not enterococcus, susceptible essentially to all antibiotics except ciprofloxacin. * MRI: IMPRESSION: * 1. Anterior soft tissue swelling and multifocal dystrophic calcifications over the left tibia as above, most prominent proximally. The soft tissue swelling may represent cellulitis and the calcifications are nonspecific but could be related to previous trauma or inflammatory process. * 2. Nonspecific edema within the proximal tibialis anterior muscle belly, query myositis. * 3. No evidence of acute fracture or osteomyelitis. * 4. No evidence of drainable fluid collection. PHYSICAL EXAMINATION: GENERAL: Well-developed, elderly woman who is alert, in no distress. HEENT: Unremarkable NECK: Supple, trachea midline. CHEST: Rise symmetrical. Breath sounds clear. HEART: S1, S2. ABDOMEN: Soft, bowel sounds present. EXTREMITIES: Left lower extremity dressing clean, dry and intact. ASSESSMENT: 1. Polymicrobial bacteremia 05/20/16 secondary to #2. Organism 1 STREP AGALACTIAE - (GROUP B) Organism 2 BACTEROIDES FRAGILIS 2. Left lower extremity cellulitis, possible myositis, with acute on chronic wound (-)osteomyelitis per MRI => WOUND CX 05/20/16 & 05/23/16 * WOUND CULTURE Final Organism 1 STREP AGALACTIAE - (GROUP B) QUANTITY 1+ Organism 2 STREP GRP D NOT ENTEROCOCCUS QUANTITY 1+ 3. Diabetes. 4. Hypertension. TOTAL ABX DAY #8 => Flagyl, Rocephin s/p Vanco IV + Zosyn ID PLAN: Patient will complete IV ABX DAY #8 today -> repeat Blood Cx are NEGATIVE. * => She has PICC in place, MRI w/concern deep tissue infection possible myositis * => Appreciate Dr. Belzcyk IV ABX recommendation => he irrigated wounds and recommended to continue IV ABX for additional 2-weeks upon discharge -- hence LAST DAY IV ABX will be extended to 06/09/16 * => Wound care follow up with APC after DC . Problems: Consultation Date/Type/Reason Admit Date/Time May 20, 2016 at 19:46 Type of Consultation: ID Exam/Review of Systems Vital Signs Vitals Vital Signs Date Time Temp Pulse Resp B/P Pulse Ox O2 Delivery O2 Flow Rate FiO2 05/28/16 07:55 98.5 81 18 125/59 98 Intake and Output 05/27/16 05/27/16 05/28/16 15:00 23:00 07:00 Intake Total 1700 ml 200 ml Balance 1700 ml 200 ml Results Result Diagram: 05/25/16 0535 05/25/16 0535 Results 24 hrs Laboratory Tests Test 05/27/16 17:43 05/27/16 21:17 05/28/16 07:53 05/28/16 11:48 Bedside Glucose 130 93 114 123 Medications Medications Current Medications Morphine Sulfate (morphine) 2 mg Q4H PRN IV pain Last administered on 05/24/16 22:22; Admin Dose 2 MG; Start 05/20/16 at 22:00 Acetaminophen (Tylenol Tab) 650 mg Q4H PRN PO PAIN AND OR ELEVATED TEMP Last administered on 05/24/16 06:49; Admin Dose 650 MG; Start 05/20/16 at 22:00 Ondansetron HCl (Zofran Inj) 4 mg Q6H PRN IV NAUSEA AND/OR VOMITING; Start 05/20 at 22:00 Insulin Glargine (Lantus) 20 unit DAILY@20 SC Last administered on 05/27/16 21: 19; Admin Dose 20 UNIT; Start 05/21/16 at 20:00 Diagnostic Test (Pha) (Accu-Chek) 1 ea 02 XX Last administered on 05/21/16 02: 45; Admin Dose 1 EA; Start 05/21/16 at 02:00 Miscellaneous Information 1 ea NOTE XX ; Start 05/20/16 at 22:30 Glucose (Glutose) 15 gm Q15M PRN PO DECREASED GLUCOSE; Start 05/20/16 at 22:30 Glucose (Glutose) 22.5 gm Q15M PRN PO DECREASED GLUCOSE; Start 05/20/16 at 22:30 Dextrose (D50w Syringe) 25 ml Q15M PRN IV DECREASED GLUCOSE; Start 05/20/16 at 22:30 Dextrose (D50w Syringe) 50 ml Q15M PRN IV DECREASED GLUCOSE; Start 05/20/16 at 22:30 Glucagon (Glucagen) 1 mg Q15M PRN IM DECREASED GLUCOSE; Start 05/20/16 at 22:30 Glucose (Glutose) 15 gm Q15M PRN BUCCAL DECREASED GLUCOSE; Start 05/20/16 at 22: 30 Aspirin (Halfprin) 81 mg DAILY PO Last administered on 05/28/16 09:24; Admin Dose 81 MG; Start 05/21/16 at 09:00 Atorvastatin Calcium (Lipitor) 40 mg DAILY PO Last administered on 05/28/16 09: 24; Admin Dose 40 MG; Start 05/21/16 at 09:00 Azathioprine (Imuran) 50 mg DAILY PO Last administered on 05/28/16 09:23; Admin Dose 50 MG; Start 05/21/16 at 09:00 Ferrous Sulfate (Ferrous Sulfate (Ec)) 325 mg BID PO Last administered on 09:23; Admin Dose 325 MG; Start 05/21/16 at 09:00 Fluticasone Propionate (Flonase 0.05% Nasal) 1 spray BID NASAL Last administered on 05/28/16 09:24; Admin Dose 1 SPRAY; Start 05/21/16 at 09:00 Nortriptyline HCl (Aventyl) 10 mg HS PO Last administered on 05/27/16 21:20; Admin Dose 10 MG; Start 05/21/16 at 21:00 Amlodipine Besylate (Norvasc) 2.5 mg QAM PO Last administered on 05/28/16 09:24 ; Admin Dose 2.5 MG; Start 05/22/16 at 09:00 Losartan Potassium (Cozaar) 25 mg BID PO Last administered on 05/28/16 09:23; Admin Dose 25 MG; Start 05/21/16 at 21:00 Acetaminophen/ Hydrocodone Bitart ([place] (10/325)) 1 tab Q4H PRN PO PAIN Last administered on 05/27/16 21:21; Admin Dose 1 TAB; Start 05/21/16 at 14:00 Docusate Sodium (Colace) 100 mg DAILY PO Last administered on 05/28/16 09:23; Admin Dose 100 MG; Start 05/22/16 at 15:00 Polyethylene Glycol (Miralax) 17 gm DAILY PRN PO CONSTIPATION; Start 05/22/16 at 15:00 Senna (Senokot) 1 tab QPM PO Last administered on 05/27/16 21:20; Admin Dose 1 TAB; Start 05/22/16 at 21:00 Magnesium Oxide (Mag-Ox 400) 400 mg BID PO Last administered on 05/28/16 09:24 ; Admin Dose 400 MG; Start 05/23/16 at 15:00 Heparin Sodium (Porcine) (Heparin (5000 Units/0.5 ml)) 5,000 unit BID SC Last administered on 05/28/16 09:33; Admin Dose 5,000 UNIT; Start 05/24/16 at 21:00 IV Flush (NS 10 ml) 10 ml PRN PRN IV IV PROTOCOL; Start 05/26/16 at 12:30 Silver Sulfadiazine 1 applic 1 applic DAILY TOP Last administered on 05/28/16 09:25; Admin Dose 1 APPLIC; Start 05/27/16 at 10:00 Ertapenem/Sodium Chloride (Invanz/NS) 100 ml @ 200 mls/hr Q24H IVPB Last administered on 05/28/16 12:21; Admin Dose 200 MLS/HR; Start 05/27/16 at 12:00; Stop 06/02/16 at 21:00 KIMBERLY BARBA NP May 28, 2016 16:23
--- NOTE | 2016-05-28 17:26 | PN ---
DATE: 05/28/2016 SUBJECTIVE: The patient is a 66-year-old female who was admitted with sepsis from lower extremity c ellulitis wound. She is doing better with no respiratory distress, fevers or chills. She has had a PICC line placed. She is now ambulatory and eating reasonably. PHYSICAL EXAMINATION: GENERAL: Shows her to be well-developed, well-nourished, in no acute distress. VITAL SIGNS: Pulse 81, respirations 18, blood pressure 125/59, temperature 98.5. HEAD AND NECK: Shows no acute inflammation. HEART: Regular without murmurs or gallops. CHEST: Clear. ABDOMEN: Soft, nontender. EXTREMITIES: Show the leg is bandaged. NEUROLOGIC: Alert and conversant. DIAGNOSTICS: No new lab or x-ray, except blood sugars which are running in the low-100s. ASSESSMENT: 1. Left lower extremity cellulitis with no osteomyelitis. Wound positive for Streptococcus agalact iae and group D strep, not enterococcus. 2. Polymicrobial bacteremia from the same organisms. 3. Adult onset diabetes mellitus. 4. Hypertension. 5. History of hypergammaglobulinemia, on Imuran and prednisone. 6. Hypothyroidism. 7. Dyslipidemia. PLAN: The patient and family have declined fpc placement. Arrangements are being made for discharge home, which we anticipate for tomorrow. Discussed with nursing and family. Dictated By: LYLE KRUGER/TORREY Conf#: [id number] DID#: [id number]
[2016-05-28 20:00] VITALS: BP 140/66; PULSE 86; RESP 18
[2016-05-28] MEDS: SENNA TAB PO SCH (21:00)
[2016-05-28] MEDS: INSULIN GLARGINE [LANtus] 3 ML PEN SC SCH (21:04)
[2016-05-28] MEDS: HYDROCODONE/APAP (10/325) TAB PO PRN (21:08)
[2016-05-28] MEDS: NORTRIPTYLINE 10 MG CAP PO SCH (21:08)
[2016-05-29] MEDS: ACCU-CHEK XX SCH (02:00)
[2016-05-29] MEDS: LEVOTHYROXINE 88 MCG TAB PO SCH (06:18)
[2016-05-29] MEDS: ASPIRIN (EC) 81 MG TAB PO SCH (08:14)
[2016-05-29] MEDS: FERROUS SULFATE (EC) 325 MG TAB PO SCH (08:14)
[2016-05-29] MEDS: ATORVASTATIN 40 MG TAB PO SCH (08:14)
[2016-05-29] MEDS: AZATHIOPRINE 50 MG TAB PO SCH (08:14)
[2016-05-29] MEDS: AMLODIPINE 2.5 MG TAB PO SCH (08:14)
[2016-05-29] MEDS: MAGNESIUM OXIDE 400 MG TAB PO SCH (08:14)
[2016-05-29] MEDS: DOCUSATE SODIUM 100 MG CAP PO SCH (08:14)
[2016-05-29] MEDS: metFORMIN 500 MG TAB PO SCH (08:14)
[2016-05-29 08:15] VITALS: BP 128/62; RESP 20
[2016-05-29] MEDS: INSULIN ASPART [NOVOLOG] 3 ML PEN SC SCH ×4 (08:15→12:13)
[2016-05-29] MEDS: LOSARTAN 25 MG TAB PO SCH (08:15)
[2016-05-29] MEDS: FLUTICASONE 0.05% 16 GM NAS SPRAY NASAL SCH (08:15)
[2016-05-29] MEDS: SILVER SULFADIAZINE 1% 50 GM CR TOP SCH (08:16)
[2016-05-29] MEDS: HEPARIN 5,000 UNIT/0.5 ML VIAL SC SCH (09:08)
[2016-05-29] MEDS: ERTAPENEM SODIUM 1 GM in SOD CHLORIDE 0.9% 100 ML IVPB SCH (12:14)
--- NOTE | 2016-05-29 16:54 | PN ---
DATE: 05/29/2016 SUBJECTIVE: The patient is alert, feels good, looks comfortable, no fevers. She is on IV Invanz, status post Flagyl and Rocephin. PHYSICAL EXAMINATION: GENERAL: This is a well-developed, elderly woman who is alert, in no distress. HEENT: Head atraumatic, normocephalic. Sclerae anicteric. Buccal mucosa pink. NECK: Supple. CHEST: Rise symmetrical. Breath sounds clear. HEART: S1, S2. ABDOMEN: Soft, bowel tones present. EXTREMITIES: Left lower extremity dressing intact. ASSESSMENT: 1. Resolving sepsis. 2. Bacteremia with culture grew strep and Bacteroides fragilis secondary to #3. 3. Left lower extremity acute on chronic cellulitis with chronic wounds status post debridement. PLAN: The patient remains stable and overall improving, anticipate discharge on current antimicrobials until 06/09/2016. Dictated By: ZURDO LANE LABORER DRIVER for SUKHI ARDON/TORREY Conf#: [id number] DID#: [id number] NATE
--- NOTE | 2016-05-30 04:41 | DS ---
DATE OF ADMISSION: 05/20/2016 DATE OF DISCHARGE: 05/29/2016 DISCHARGE DIAGNOSES: 1. Left lower extremity cellulitis, discharged with antibiotics. 2. Bacteremia secondary to strep. Once again, discharged with antibiotics. 3. Diabetes. Continue insulin. 4. Hypertension, stable. Continue home meds. 5. Hypogammaglobinemia. Continue Remeron and prednisone. 6. Hypothyroidism, stable. HOSPITAL COURSE: The patient is a 66-year-old female with a history of diabetes, hypertension, dysl ipidemia, and hypergammaglobulinemia. The patient presents with left lower extremity redness and pa in. The patient was admitted with the diagnosis of sepsis secondary to fever, tachycardia. The pat ient's blood cultures did come back positive for group B strep as well as bacteroides fragilis. Lef t lower leg wound also did show group B strep. The patient was seen by ID and was put on antibiotic s. The patient's sepsis did ultimately resolve with antibiotics. She was felt to be stable for dis charge. ID recommendation was for IV antibiotics to be continued. Recommendation was to continue e rtapenem and home health until 06/09/2016. On the day of discharge, the patient's vitals, labs, and physical exam were stable. She had no acute complaints, and questions were answered. CONDITION ON DISCHARGE: Stable. DISPOSITION: To home with home health for IV antibiotics. MEDICATIONS: The patient is to continue her usual home medications as well as ertapenem 1 gram IV d aily until 06/09/2016. FOLLOWUP: The patient is to follow up with PCP in 1 to 2 weeks and with home health agency. Greater than 30 minutes was spent coordinating discharge of patient. Dictated By: JEFFREY OSEGUERA MD BS/NTS Conf#: [id number] DID#: [id number]
== END 2016-05-29 14:20 | disposition home health service (06) | DRG 872 ==
LOC: E/R 17:26 → MS2 19:46
PROVIDERS: ADMIT Internal Medicine; ATTEND Internal Medicine
PROC: 02HV33Z Insertion of Infusion Device into Superior Vena Cava, Percutaneous Approach (ICD-10-PCS; principal; 2016-05-26)
PROC: B548ZZA Ultrasonography of Superior Vena Cava, Guidance (ICD-10-PCS; 2016-05-26)
DX: A40.1 Sepsis due to streptococcus, group B (principal); R65.20 Severe sepsis without septic shock; E11.621 Type 2 diabetes mellitus with foot ulcer; L03.116 Cellulitis of left lower limb; L97.319 Non-pressure chronic ulcer of right ankle with unspecified severity; E11.65 Type 2 diabetes mellitus with hyperglycemia; E78.5 Hyperlipidemia, unspecified; D89.2 Hypergammaglobulinemia, unspecified; E03.9 Hypothyroidism, unspecified; Z79.4 Long term (current) use of insulin; Z79.82 Long term (current) use of aspirin; Z79.52 Long term (current) use of systemic steroids; Z79.84 Long term (current) use of oral hypoglycemic drugs
CPT/HCPCS: 36415; 36569; 71010; 73590; 73718; 76937; 80048; 80053; 80061; 80202; 81001; 81003; 82728; 82962; 83036; 83540; 83605; 83735; 84443; 84484; 85025; 85610; 85730; 86592; 86803; 87040; 87070; 87081; 87086; 87340; 93005; 93306; 96365; 96366; 96368; 96375; 97162; J0692; J1170; J1335; J1644; J1815; J2185; J2270; J2405; J2543; J3370; J7030; J7050; J7500

== ENCOUNTER 2016-06-06 15:35 | Outpatient (CLI) | payer OTHER ==
[~2016-06-06] VITALS: Ht 154.9 cm; Wt 60.0 kg
[~2016-06-06 15:35] MED LIST: AMLO2.5T78 PO; ASPI-664 PO; ATOR40TA68 PO; BACI28.34 TOP; CADE40GE TP; FER325 PO; FLUT16SP17 NASAL; HC20CR25 TOP; IMU50 PO; INSU100I12 SQ; LEVO88TA3 PO; LOSA25TA5 PO; METF1000 PO; NORT10CA2 PO; PRED5 PO; SIME80TA PO
[2016-06-06 15:46] VITALS: BP 139/64; PULSE 89; RESP 18; Ht 154.9 cm; Wt 60.0 kg
--- NOTE | 2016-06-06 16:04 | PN ---
Date/Time of Note Date/Time of Note DATE: 06/06/16 TIME: 15:59 Outpatient Progress Note Chief Complaint Cellulitis/diabetes/hypertension/hypothyroidism/hyperlipidemia HPI Cellulitis/patient cellulitis of left leg, patient on an ertapenem 1 g every 24 hours, patient still has slight pain, slight difficulty in walking, No fever chills, Diabetes/no pleuritic supple due to hypoglycemia, no gastroparesis, Hypertension/no headache or dizziness or lightheadedness, Hypothyroidism/no puffiness of eyes, constipation, on medication, Hyperlipidemia/no xanthoma, on medication, Hypergammaglobulinemia on Imuran, and prednisone, Review of Systems Const: No Fever, no chills, no Wt. loss, no Fatigue, normal appetite, no diaphoresis. Eyes: No pain, no discharge, no redness, no visual change, no foreign body. ENT: No pain, no bleeding, no congestion, no sore throat, no dysphagia, no discharge or rhinitis. Lymph: No adenopathy, no tender nodes, no lymphedema. Resp: No SOB, no cough, no sputum, no wheezing, no chest pain. CV: No chest pain, no palpitaions, no SHIN, no PND, no edema. GI: Normal appetite, no pain, no nausea, no vomiting, no diarrhea, no blood, no constipation. : No frequency, no urgency, no dysuria, no hematuria, no flank pain, no discharge, no bleeding. Musc: No bone/joint pain, no back pain, no neck pain, no knee pain, no restricted ROM. Skin: No rash, no skin lesions, no erythema, no laceration, no bruising, no pruritus. Neuro: No HENRY, no dizziness, no syncope, no seizure, no focal-weakness. Endo: No polyuria, no polydypsia, no dry-skin, no temp-intolerance. Psych: No hallucinations, no depression, no anxiety, no suicidal ideation. Ext: No edema, left leg redness, and slight pain, no ulcer, no weakness. Physical Exam Vital Signs Date Time Temp Pulse Resp B/P Pulse Ox O2 Delivery O2 Flow Rate FiO2 06/06/16 15:46 98.5 89 18 139/64 97 Room Air General Appearance: A 66 year-old female who appears well-developed, well- nourished, in no acute distress. HEENT: Head normocephalic, atraumatic. Pupils equal, round, reactive to light and accommodate. Sclerae are no jaundice. Nasal turbinates pink without erythema or nasal discharge. Mucous membranes pink and moist without lesions. Oropharynx clear without any exudate or discharge. NECK: Supple. Trachea midline, No thyromegaly, No cervical lymphadenopathy, No mass, No carotid bruits, No JVD, Carotid pulses 2+ bilaterally. PULMONARY: Clear to auscultaion bilaterally, No retractions, Chest expansion symmetric bilaterally, no rales, no ronchi, no dulness on percussion. CARDIAC: Normal SI and S2, Regular rate and rythm, no murmur, gallop, or rub. GASTROINTESTINAL: Abdomen is soft, non-tender, Non Rigid, No distention, Positive bowel sounds x4 quadrants, Liver normal. SKIN: Warm, dry, no rash, no bruise, no echmosis. EXTREMITIES: Bilateral lower extremities no edema, left leg redness, and shine tenderness, no bleeding or discharge, warm to touch, no phlabitus, pulse palpable, no contracture. MUSCULOSKELETAL: Spine Normal, Non-tender, Normal range of motion, No swelling, no deformity, no clubbing, or cyanosis, the patient has no edema to bilateral lower extremities, dorsalis pedis pulses palpable bilaterally. NEUROLOGIC: The patient is awake, alert, oriented, responding to yes/no questions appropriately, moving all extremities, cranial nerve intact, normal strenght, normal power, normal coordination, normal gait. Allergies Coded Allergies: No Known Allergy (Unverified , 05/20/16) PMH Diabetes/hypertension/hyperlipidemia/hypothyroidism/hypogammaglobinemia Social Hx No smoking no drinking no drugs, Family Hx Noncontributory Assessment/Plan Impression Cellulitis/diabetes/hypertension/hypothyroidism/hyperlipidemia/ hypergammaglobulinemia Plan Patient on IV antibiotic, will continue that, Patient encouraged to follow with the primary care physician, If any fever to let us know or go to the ER, CBC CMP, Patient has all other supply, monitor the blood sugar closely, discussed with the patient, Medications Home Meds Reported Medications Bacitracin* (Bacitracin Zinc Oint*) 28.35 Gm Oint, 2 APPLIC TOP BID, TUB APPLI TO 05/20/16 Amlodipine Besylate* (Amlodipine Besylate*) 2.5 Mg Tablet, 2.5 MG PO BID, #30 TAB 05/20/16 Aspirin* (Aspirin* EC) 81 Mg Tablet.dr, 81 MG PO DAILY, TAB 05/20/16 Atorvastatin* (Atorvastatin*) 40 Mg Tablet, 40 MG PO DAILY, #30 TAB 05/20/16 Azathioprine* (Imuran*) 50 Mg Tab, 50 MG PO DAILY, TAB 05/20/16 Cadexomer Iodine (Iodosorb) 40 Gm Gel..gm., 1 MG TP BID Y for PRN 05/20/16 Ferrous Sulfate* (Ferrous Sulfate*) 325 Mg Tabec, 325 MG PO BID, TAB 05/20/16 Fluticasone Propionate* (Fluticasone Propionate* Nasal) 50 Mcg/[place] - 16 Gm [place].susp, 1 SPRAY NASAL BID, #1 BOTTLE TO EACH NOSTRIL 05/20/16 Insulin Lispro (Humalog Kwikpen U-100) 100 Unit/1 Ml Insuln.pen, 14 UNIT SQ TID 05/20/16 Hydrocortisone* Topical (Hydrocortisone* Topical) 2.5%-20 Gm Cream..g., 1 APPLIC TOP BID, TUB 05/20/16 Levothyroxine Sodium* (Levothyroxine Sodium*) 88 Mcg Tablet, 88 MCG PO BEFORE BREAKFAST, #30 TAB 05/20/16 Losartan Potassium* (Losartan Potassium*) 25 Mg Tablet, 25 MG PO DAILY, TAB 05/20/16 Metformin Hcl* (Metformin Hcl*) 1,000 Mg Tablet, 1000 MG PO WITH BREAKFAST DINNE , #60 TAB 05/20/16 Nortriptyline Hcl* (Nortriptyline Hcl*) 10 Mg Capsule, 10 MG PO HS, CAP 05/20/16 Prednisone* (Prednisone*) 5 Mg Tab, 5 MG PO DAILY, TAB 05/20/16 Simethicone* (Anti-Gas/80*) 80 Mg Tab.chew, 80 MG PO Q6H Y for DISTENSION/GAS/ BLOATING, TAB.CHEW 05/20/16 ALEIDA OTERO MD Jun 06, 2016 16:04
== END 2016-06-06 16:33 | disposition home or self-care (01) ==
LOC: DCC 15:35
PROVIDERS: ATTEND Internal Medicine
DX: D80.1 Nonfamilial hypogammaglobulinemia (principal); E78.5 Hyperlipidemia, unspecified; E03.9 Hypothyroidism, unspecified; I10 Essential (primary) hypertension; L03.116 Cellulitis of left lower limb

== ENCOUNTER 2016-06-21 17:55 | Emergency (ER) | payer OTHER ==
[~2016-06-21] VITALS: Ht 154.9 cm; Wt 55.0 kg
[2016-06-21 17:59] VITALS: Ht 154.9 cm; Wt 55.0 kg
[2016-06-21] MEDS ORDERED: LANT3I SC (22:14)
--- NOTE | 2016-06-21 22:57 | RADRPT ---
PROCEDURE: Ultrasound examination of the left upper extremity veins with Doppler. CLINICAL INDICATION: Pain and swelling. TECHNIQUE: Multiple sonographic images of the left upper extremity veins were performed with holbrook scale and color Doppler. COMPARISON: None. FINDINGS: The left internal jugular, subclavian, axillary, brachial, basilic, cephalic, radial and ulnar veins demonstrate normal color flow, waveforms and compression. There is no evidence of deep venous thro mbosis. IMPRESSION: No evidence of deep venous thrombosis within the left upper extremity veins. .Jose R Vuong MD, MD Date Time Electronically viewed and signed by .Jose R Vuong MD, on 06/21/2016 22:57 .T/
[2016-06-21 23:01] VITALS: BP 153/70; PULSE 80; RESP 20; TEMP 98
--- NOTE | 2016-06-22 01:56 | ERD ---
ER Documentation Chief Complaint Date/Time DATE: 06/22/16 TIME: 01:54 Chief Complaint sent by pmd for picc line removal HPI 66-year-old woman here for left upper extremity PICC line removal, it was inserted a few weeks ago to treat her left lower extremity cellulitis with IV antibiotics. She states her leg has improved, she has had no redness or swelling, no fevers or chills, no chest pain or shortness of breath. Patient would like the PICC line removed and states she has mild discomfort to the left upper arm and axillary region on the left. ROS All systems reviewed and are negative except as per history of present illness. Medications Home Meds Reported Medications Insulin Glargine* (Lantus*) 100 Unit/Ml Soln, 44 UNIT SC QHS, #1 VIAL 06/21/16 Bacitracin* (Bacitracin Zinc Oint*) 28.35 Gm Oint, 2 APPLIC TOP BID, TUB APPLI TO 05/20/16 Amlodipine Besylate* (Amlodipine Besylate*) 2.5 Mg Tablet, 2.5 MG PO BID, #30 TAB 05/20/16 Aspirin* (Aspirin* EC) 81 Mg Tablet.dr, 81 MG PO DAILY, TAB 05/20/16 Atorvastatin* (Atorvastatin*) 40 Mg Tablet, 40 MG PO DAILY, #30 TAB 05/20/16 Azathioprine* (Imuran*) 50 Mg Tab, 50 MG PO DAILY, TAB 05/20/16 Cadexomer Iodine (Iodosorb) 40 Gm Gel..gm., 1 MG TP BID Y for PRN 05/20/16 Ferrous Sulfate* (Ferrous Sulfate*) 325 Mg Tabec, 325 MG PO BID, TAB 05/20/16 Fluticasone Propionate* (Fluticasone Propionate* Nasal) 50 Mcg/[place] - 16 Gm [place].susp, 1 SPRAY NASAL BID, #1 BOTTLE TO EACH NOSTRIL 05/20/16 Insulin Lispro (Humalog Kwikpen U-100) 100 Unit/1 Ml Insuln.pen, 14 UNIT SQ TID 05/20/16 Hydrocortisone* Topical (Hydrocortisone* Topical) 2.5%-20 Gm Cream..g., 1 APPLIC TOP BID, TUB 05/20/16 Levothyroxine Sodium* (Levothyroxine Sodium*) 88 Mcg Tablet, 88 MCG PO BEFORE BREAKFAST, #30 TAB 05/20/16 Losartan Potassium* (Losartan Potassium*) 25 Mg Tablet, 25 MG PO DAILY, TAB 05/20/16 Metformin Hcl* (Metformin Hcl*) 1,000 Mg Tablet, 1000 MG PO WITH BREAKFAST DINNE , #60 TAB 05/20/16 Nortriptyline Hcl* (Nortriptyline Hcl*) 10 Mg Capsule, 10 MG PO HS, CAP 05/20/16 Prednisone* (Prednisone*) 5 Mg Tab, 5 MG PO DAILY, TAB 05/20/16 Simethicone* (Anti-Gas/80*) 80 Mg Tab.chew, 80 MG PO Q6H Y for DISTENSION/GAS/ BLOATING, TAB.CHEW 05/20/16 Allergies Allergies: Coded Allergies: No Known Allergy (Unverified , 06/21/16) PMhx/Soc Diabetes mellitus, hypertension, hypothyroidism, hypercholesterolemia, recent left lower extremity cellulitis treated with IV antibiotics to the left upper extremity PICC line. History of Surgery: No Anesthesia Reaction: No Hx Neurological Disorder: No Hx Respiratory Disorders: No Hx Cardiac Disorders: Yes (htn, elevated cholesterol) Hx Psychiatric Problems: No Hx Miscellaneous Medical Probl: Yes (DM, HTN, DYSLIPIDEMIA) Hx Alcohol Use: No Hx Substance Use: No Hx Tobacco Use: Yes Smoking Status: Current every day smoker FmHx Family History: No diabetes Physical Exam Vitals Vital Signs Date Time Temp Pulse Resp B/P Pulse Ox O2 Delivery O2 Flow Rate FiO2 06/21/16 23:01 98.0 80 20 153/70 98 Room Air 06/21/16 17:59 98.1 90 18 181/72 98 Physical Exam GENERAL: Well-developed, well-nourished, well-hydrated, in no apparent distress , looks nontoxic in appearance HEENT: Moist mucous membranes, pink conjunctiva, no cervical spine tenderness or step-off deformities, no goiter, no jaundice or icterus, extraocular movements intact without pain. No submandibular induration, and no pharyngeal erythema NEURO: Alert and oriented 3, cranial nerves II through XII intact bilaterally, pupils equal round reactive to light, no focal deficits or facial asymmetry, sensation intact distally Strength 5/5 in upper and lower extremities bilaterally CARDIAC: Regular rate and rhythm, no murmurs rubs or gallops LUNGS: Clear bilaterally no wheezing crackles or stridor ABDOMEN: Soft nontender, no guarding, no rigidity, no rebound, no psoas sign no obturator sign. Normoactive bowel sounds SKIN: Warm and dry to touch, no abrasions, contusions, or hematomas, no lacerations, no ecchymosis, no target lesions, and without ulcers EXTREMITIES: No clubbing cyanosis or edema, calves are bilaterally symmetrical, no Homans sign, no popliteal cord sign. Distal pulses equal and bilateral PSYCH: Normal affect without agitation or irritability Procedures/MDM PICC line was completely removed by me, it was intact, there was no residual bleeding. There is no signs of thrombosis to the left upper extremity such as swelling, edema, erythema. The patient does have discomfort to the region so a Doppler ultrasound left upper extremity was performed, there was no acute deep vein thrombosis noted. Please refer to radiologist dictation for full report. Patient feels much better at this time, and vital signs are normal, symptoms have improved. I did give strict instructions to return to the ED if symptoms continue or worsen, patient will otherwise follow-up with primary care physician. Patient understood instructions and agreed to plan. Departure Diagnosis: Primary Impression: PIC line (peripherally inserted central catheter) removal Additional Impression: Complication of vascular access for dialysis Encounter type: initial encounter Qualified Code: T82.9XXA - Complication of vascular access for dialysis, initial encounter Condition: Good Patient Instructions: Dialysis Access LITA STREETER MD June 22, 2016 01:56
== END 2016-06-21 23:02 | disposition home or self-care (01) ==
LOC: E/R 17:55
DX: Z45.2 Encounter for adjustment and management of vascular access device (principal); E11.9 Type 2 diabetes mellitus without complications; I10 Essential (primary) hypertension; E03.9 Hypothyroidism, unspecified; F17.210 Nicotine dependence, cigarettes, uncomplicated; Z79.4 Long term (current) use of insulin; Z79.82 Long term (current) use of aspirin; Z79.84 Long term (current) use of oral hypoglycemic drugs
CPT/HCPCS: 93971; Z7502